=== PATIENT | male | born 1960 | race Caucasian/White ===

== ENCOUNTER → 2016-07-31 | Outpatient (CLI) | payer MEDICARE ==
[~2016-07-31] MED LIST: ALPRAZOLAM0.5 M2 PO; CHRONULAC10 GM/15 M PO; Carafate1 GM/10 ML PO; DILANTIN100 MG PO; FLUVOXAMINE50 MG PO; Flovent 220 M220 MCG INH; KEFLEX500 MG PO; KRISTALOSE10 GM/PACK PO; LISINOPRIL5 MG PO; MULTIPLE VITAMI1 CAP PO; NEXIUM40 MG PO; PROAIR HFA0.09 MG/AC IH; STOOL SOFTENER100 M1 PO; SYMBICORT1 AE1 IH; TORADOL10 MG PO; VITAMIN D32000 I1 PO; ZITHROMAX250 MG PO
[2016-07-31 08:18] LABS: BASO % 0.5 % (0.0-1.0); EOS # 0.1 10*3/uL (0.0-0.4); EOS % 1.1 % (1.0-4.0); HEMATOCRIT 45.4 % (42.0-52.0); HEMOGLOBIN 15.2 g/dl (14.0-18.0); LYMPH # 1.5 10*3/uL (1.3-4.4); LYMPH % 24.5 % (27.0-41.0); MEAN CORPUSCULAR HGB 32.1 pg (27.0-31.0); MEAN CORPUSCULAR HGB CONC 33.5 g/dl (33.0-37.0); MEAN PLATELET VOLUME 11.6 fl (9.6-12.3); MONO # 0.5 10*3/uL (0.1-1.0); MONO % 7.8 % (3.0-9.0); NEUT # 4.1 10*3/uL (2.3-7.9); NEUT % 65.8 % (47.0-73.0); PLATELET COUNT AUTOMATED 150 10*3/uL (130-400); RED BLOOD COUNT 4.73 10*6/uL (4.50-5.90); RED CELL DISTRI WIDTH 12.2 % (0-14.5); WHITE BLOOD COUNT 6.3 10*3/uL (4.8-10.8)
[2016-07-31 08:50] LABS: ALBUMIN 3.7 gm/dl (3.1-4.5); SGOT/AST 17 IU/L (3-35); SGPT/ALT 31 U/L (12-78)
[2016-07-31 08:52] LABS: ALKALINE PHOSPHATASE 66 U/L (45-117); BILIRUBIN, DIRECT < 0.1 mg/dL (0.0-0.2); BILIRUBIN, TOTAL 0.3 mg/dl (0.2-1.0); TOTAL PROTEIN 7.2 gm/dL (6.4-8.2)
== END | disposition home or self-care (01) ==
LOC: LAB 07:04
PROVIDERS: Nurse Practitioner Family
DX: R56.9 Unspecified convulsions (principal)

== ENCOUNTER → 2016-08-03 | Outpatient (CLI) | payer MEDICARE ==
[2016-08-03 09:27] LABS: BASO % 0.5 % (0.0-1.0); EOS # 0.1 10*3/uL (0.0-0.4); EOS % 1.3 % (1.0-4.0); HEMATOCRIT 42.9 % (42.0-52.0); HEMOGLOBIN 14.7 g/dl (14.0-18.0); LYMPH # 1.3 10*3/uL (1.3-4.4); LYMPH % 22.9 % (27.0-41.0); MEAN CELL VOLUME 95.1 fl (80.0-94.0); MEAN CORPUSCULAR HGB 32.6 pg (27.0-31.0); MEAN CORPUSCULAR HGB CONC 34.3 g/dl (33.0-37.0); MONO # 0.6 10*3/uL (0.1-1.0); NEUT # 3.6 10*3/uL (2.3-7.9); NEUT % 64.9 % (47.0-73.0); PLATELET COUNT AUTOMATED 141 10*3/uL (130-400); RED BLOOD COUNT 4.51 10*6/uL (4.50-5.90); RED CELL DISTRI WIDTH 12.3 % (0-14.5); WHITE BLOOD COUNT 5.5 10*3/uL (4.8-10.8)
[2016-08-03 09:43] LABS: ALBUMIN 3.6 gm/dl (3.1-4.5); ALKALINE PHOSPHATASE 73 U/L (45-117); BILIRUBIN, TOTAL 0.3 mg/dl (0.2-1.0); BUN 14 mg/dl (7-24); CARBON DIOXIDE 30 mmol/L (21-32); CHLORIDE 108 mmol/L (98-107); CHOLESTEROL 144 mg/dL (<200); EST GLOM FILT AFRICAN AMERICAN > 60 ml/min; GLUCOSE 93 mg/dL (65-99); HDL CHOLESTEROL 40 mg/dl (40-60); LDL CHOLESTEROL 81 mg/dL (9-159); POTASSIUM 4.5 mmol/L (3.5-5.1); SGOT/AST 18 IU/L (3-35); SGPT/ALT 38 U/L (12-78); SODIUM 142 mmol/L (136-145); TRIGLYCERIDES 114 mg/dl (<150); VLDL CHOLESTEROL 23 mg/dL (6-40)
[2016-08-03 10:31] LABS: VITAMIN D, 25-HYDROXY 34.8 ng/mL (30-100)
== END ==
LOC: LAB 09:01
PROVIDERS: Internal Medicine
DX: S92.911A Unspecified fracture of right toe(s), initial encounter for closed fracture (principal); M25.474 Effusion, right foot; K59.09 Other constipation; E55.9 Vitamin D deficiency, unspecified; E78.00 Pure hypercholesterolemia, unspecified; X58.XXXA Exposure to other specified factors, initial encounter; Y93.89 Activity, other specified; Y92.89 Other specified places as the place of occurrence of the external cause; Y99.8 Other external cause status

== ENCOUNTER 2017-01-04 16:55 | Emergency (ER) | payer MEDICARE ==
[~2017-01-04] VITALS: Ht 177.8 cm; Wt 99.8 kg
[2017-01-04 17:51] VITALS: BP 144/72
[2017-01-04 17:51] LABS: BASO % 0.3 % (0.0-1.0); EOS # 0.1 10*3/uL (0.0-0.4); EOS % 0.5 % (1.0-4.0); HEMATOCRIT 43.8 % (42.0-52.0); HEMOGLOBIN 15.1 g/dl (14.0-18.0); LYMPH # 1.6 10*3/uL (1.3-4.4); LYMPH % 16.5 % (27.0-41.0); MEAN CELL VOLUME 93.8 fl (80.0-94.0); MEAN CORPUSCULAR HGB 32.3 pg (27.0-31.0); MEAN CORPUSCULAR HGB CONC 34.5 g/dl (33.0-37.0); MEAN PLATELET VOLUME 11.5 fl (9.6-12.3); MONO # 1.2 10*3/uL (0.1-1.0); MONO % 12.1 % (3.0-9.0); NEUT # 6.7 10*3/uL (2.3-7.9); NEUT % 70.3 % (47.0-73.0); PLATELET COUNT AUTOMATED 156 10*3/uL (130-400); RED BLOOD COUNT 4.67 10*6/uL (4.50-5.90); RED CELL DISTRI WIDTH 12.6 % (0-14.5); WHITE BLOOD COUNT 9.5 10*3/uL (4.8-10.8)
[2017-01-04 18:01] LABS: ACT PARTIAL THROMBO TIME 23.9 SECONDS (20.8-31.5)
== END 2017-01-04 23:43 | disposition short-term general hospital (02) ==
LOC: ED 16:55
PROVIDERS: Emergency Medicine
DX: M54.42 Lumbago with sciatica, left side (principal); M54.41 Lumbago with sciatica, right side; M48.061 Spinal stenosis, lumbar region without neurogenic claudication; G40.909 Epilepsy, unspecified, not intractable, without status epilepticus; Z88.1 Allergy status to other antibiotic agents; Z88.0 Allergy status to penicillin; G89.29 Other chronic pain

== ENCOUNTER → 2017-01-04 | Outpatient (CLI) | payer MEDICARE | END | disposition home or self-care (01) | LOC: RAD 10:02 | DX: M12.88 Other specific arthropathies, not elsewhere classified, other specified site (principal); M54.5 Low back pain; R20.0 Anesthesia of skin ==

== ENCOUNTER → 2017-06-07 | Outpatient (CLI) | payer MEDICARE ==
[2017-06-07 07:53] LABS: HEMATOCRIT 46.4 % (42.0-52.0); MEAN CELL VOLUME 95.7 fl (80.0-94.0); MEAN CORPUSCULAR HGB CONC 34.5 g/dl (33.0-37.0); MEAN PLATELET VOLUME 10.2 fl (9.6-12.3); RED BLOOD COUNT 4.85 10*6/uL (4.50-5.90); RED CELL DISTRI WIDTH 11.9 % (0-14.5)
[2017-06-07 08:08] LABS: ALKALINE PHOSPHATASE 73 U/L (45-117); BUN 19 mg/dl (7-24); CHLORIDE 102 mmol/L (98-107); CHOLESTEROL 174 mg/dL (<200); CREATININE 0.85 mg/dL (0.70-1.30); HDL CHOLESTEROL 39 mg/dl (40-60); LDL CHOLESTEROL 111 mg/dL (9-159); POTASSIUM 4.4 mmol/L (3.5-5.1); SGOT/AST 24 IU/L (3-35); SGPT/ALT 44 U/L (12-78); SODIUM 140 mmol/L (136-145); TOTAL PROTEIN 7.9 gm/dL (6.4-8.2); TRIGLYCERIDES 121 mg/dl (<150); VLDL CHOLESTEROL 24 mg/dL (6-40)
== END | disposition home or self-care (01) ==
LOC: LAB 07:15
DX: Z12.5 Encounter for screening for malignant neoplasm of prostate (principal); I10 Essential (primary) hypertension; E55.9 Vitamin D deficiency, unspecified; E78.00 Pure hypercholesterolemia, unspecified; K21.9 Gastro-esophageal reflux disease without esophagitis

== ENCOUNTER → 2017-07-03 | Outpatient (CLI) | payer MEDICARE ==
[2017-07-03 08:38] LABS: ALBUMIN 3.8 gm/dl (3.1-4.5); BUN 19 mg/dl (7-24); CHLORIDE 101 mmol/L (98-107); CREATININE 0.75 mg/dL (0.70-1.30); POTASSIUM 4.4 mmol/L (3.5-5.1); SGOT/AST 30 IU/L (3-35); SGPT/ALT 50 U/L (12-78); SODIUM 140 mmol/L (136-145); TOTAL PROTEIN 7.5 gm/dL (6.4-8.2)
[2017-07-03 08:39] LABS: ALKALINE PHOSPHATASE 61 U/L (45-117)
== END | disposition home or self-care (01) ==
LOC: LAB 07:25
PROVIDERS: Internal Medicine Pulmonary Disease
DX: D86.9 Sarcoidosis, unspecified (principal)

== ENCOUNTER → 2017-07-06 | Outpatient (CLI) | payer MEDICARE | END | disposition home or self-care (01) | LOC: CT 09:15 | DX: J98.11 Atelectasis (principal); D86.9 Sarcoidosis, unspecified ==

== ENCOUNTER → 2017-07-10 | Outpatient (CLI) | payer MEDICARE ==
--- NOTE | ~2017-07-10 | PF ---
[place], [place] PULMONARY FUNCTION TEST [id number] UN[facility] #: [id number] ROOM: DOCTOR: ELGIN VAZUQEZ,SHA BIRTHDATE: [birth year] DOS: 07/10/2017 REQUESTED BY: Liza Hyatt. A 72 inches tall, 200 pounds, 58-year-old male, BMI of 27 with a history of sarcoidosis, never smoked. No wheezing, coughing or shortness of breath. He worked in the [employer] industry for 21 years. He had a good effort during the test. Spirometry is suggestive of restrictive lung disease, no COPD, but does suggest there is some reactive airway disease with 13% increase, improvement postbronchodilator therapy in FEF 25%-75%. Lung volumes were not done except for slow vital capacity 60%, inspiratory capacity 61%, ERV 66%. On a spirometry, FEV1 2.71 liters, 69% predicted; FVC 3.03 liters, 59% predicted with no significant response to bronchodilator therapy. FEV1 or FVC was 90%. Diffusion capacity 81%, corrected alveolar volume 123% predicted, lung volume 66% predicted. IMPRESSION: No chronic obstructive pulmonary disease, only restriction and possible mild reactive airway disease and decrease in alveolar volume suggestive of possible atelectasis or loss of height. Responds to bronchodilator therapy, cannot be confirmed on this test. SHA EISENBERG MD CM:PFREPORT:PULMONARY FUNCTION TEST [id number] SHA EISENBERG MD
== END | disposition home or self-care (01) ==
LOC: CP 11:49
DX: D86.9 Sarcoidosis, unspecified (principal)

== ENCOUNTER → 2017-08-01 | Outpatient (CLI) | payer MEDICARE ==
[2017-08-01 08:27] LABS: ALBUMIN 3.7 gm/dl (3.1-4.5); ALKALINE PHOSPHATASE 68 U/L (45-117); BILIRUBIN, DIRECT < 0.1 mg/dL (0.0-0.2); SGOT/AST 23 IU/L (3-35); SGPT/ALT 38 U/L (12-78)
[2017-08-01 08:39] LABS: TOTAL PROTEIN 7.1 gm/dL (6.4-8.2)
== END | disposition home or self-care (01) ==
LOC: LAB 06:57
PROVIDERS: Nurse Practitioner Family
DX: R56.9 Unspecified convulsions (principal)

== ENCOUNTER → 2017-09-04 | Outpatient (CLI) | payer MEDICARE | END | disposition home or self-care (01) | LOC: LAB 07:54 | DX: R56.9 Unspecified convulsions (principal) ==

== ENCOUNTER 2018-03-24 02:10 | Inpatient (IN) | payer MEDICARE ==
[~2018-03-24] VITALS: Ht 182.9 cm; Wt 100.0 kg
[2018-03-24] VITALS (7 sets, daily range): BP systolic 98–139; BP diastolic 43–79
--- NOTE | ~2018-03-24 | EKG ---
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
[~2018-03-24 02:10] MED LIST changes: +FLOVENT DISKUS50 MCG INH; -Flovent 220 M220 MCG INH; +KRISTALOSE10 GM PO; -KRISTALOSE10 GM/PACK PO; -PROAIR HFA0.09 MG/AC IH; +PROAIR HFA8.5 GM INH; -STOOL SOFTENER100 M1 PO; +STOOL SOFTENER100 M3 PO
[2018-03-24 02:44] LABS: HEMATOCRIT 50.8 % (42.0-52.0); HEMOGLOBIN 17.3 g/dl (14.0-18.0); MEAN CELL VOLUME 95.3 fl (80.0-94.0); MEAN CORPUSCULAR HGB 32.5 pg (27.0-31.0); MEAN CORPUSCULAR HGB CONC 34.1 g/dl (33.0-37.0); MEAN PLATELET VOLUME 11.5 fl (9.6-12.3); PLATELET COUNT AUTOMATED 151 10*3/uL (130-400); RED BLOOD COUNT 5.33 10*6/uL (4.50-5.90); RED CELL DISTRI WIDTH 12.8 % (0-14.5)
--- NOTE | 2018-03-24 02:56 | NUR ---
CRITICAL LAB LA 4.2, NOTIFIED
[2018-03-24 02:59] LABS: ALBUMIN 4.2 gm/dl (3.1-4.5); ALKALINE PHOSPHATASE 77 U/L (45-117); BUN 30 mg/dl (7-24); CHLORIDE 108 mmol/L (98-107); CREATININE 1.31 mg/dL (0.70-1.30); LIPASE 69 U/L (73-393); SGOT/AST 26 IU/L (3-35); SGPT/ALT 38 U/L (12-78); SODIUM 142 mmol/L (136-145); TOTAL PROTEIN 8.4 gm/dL (6.4-8.2)
[2018-03-24 03:00] LABS: POTASSIUM 4.6 mmol/L (3.5-5.1)
[2018-03-24 03:03] LABS: TOTAL CELLS COUNTED 100 #CELLS
[2018-03-24 03:04] LABS: PLATELET SUFFICIENCY NORMAL (NORMAL)
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
[2018-03-24] MEDS ORDERED: PHENYTOIN100 MG PO (04:05)
[2018-03-24 04:40] LABS: HEMATOCRIT 48.3 % (42.0-52.0); HEMOGLOBIN 16.3 g/dl (14.0-18.0); MEAN CELL VOLUME 97.2 fl (80.0-94.0); MEAN CORPUSCULAR HGB 32.8 pg (27.0-31.0); MEAN CORPUSCULAR HGB CONC 33.7 g/dl (33.0-37.0); MEAN PLATELET VOLUME 11.3 fl (9.6-12.3); PLATELET COUNT AUTOMATED 127 10*3/uL (130-400); RED BLOOD COUNT 4.97 10*6/uL (4.50-5.90); WHITE BLOOD COUNT 9.5 10*3/uL (4.8-10.8)
--- NOTE | 2018-03-24 04:50 | NUR ---
LAB CALLED [facility]IT[facility] 2.[address] RAMIREZ AND NOTIFIED HIM OF RESULT AND NO NEW ORDERS RECEIVED.
[2018-03-24 04:53] LABS: BUN 29 mg/dl (7-24); CHLORIDE 109 mmol/L (98-107); POTASSIUM 4.5 mmol/L (3.5-5.1); SODIUM 142 mmol/L (136-145)
[2018-03-24 04:58] LABS: PHOSPHOROUS 2.3 mg/dL (2.5-4.9)
[2018-03-24 05:06] LABS: PHENYTOIN (DILANTIN) 11.5 ug/ml (10-20)
[2018-03-24 05:24] LABS: PLATELET SUFFICIENCY LOW (NORMAL); TOTAL CELLS COUNTED 100 #CELLS
--- NOTE | 2018-03-24 07:30 | NUR ---
LAB CALLED CRITICAL [facility] 2.2 CALLED AND SPOKE WITH DR. NEIL ABOUT THIS RESULT AND NO NEW ORDERS AT THIS TIME.
--- NOTE | 2018-03-24 09:20 | NUR ---
PT RESTING IN BED. NO DISTRESS NOTED. WILL MONITOR FAMILY AT BEDSIDE
--- NOTE | 2018-03-24 16:12 | NUR ---
PT RESTING IN BED, EYES CLOSED. NO DISTRESS NOTED. WILL MONITOR
--- NOTE | 2018-03-24 17:00 | NUR ---
PT MEDICATED WITH TYLENOL FOR TEMP 101 WILL MONITOR
--- NOTE | 2018-03-24 19:05 | NUR ---
TEMP NOW 98.2. TYLENOL EFFECTIVE. WILL MONITOR
--- NOTE | 2018-03-24 19:58 | NUR ---
PT AWAKE IN BED DURING BEDSIDE SHIFT REPORT. C/O ABD CRAMPING. NO FURTHER N/V. DIARRHEA CONTINUES. STOOL SAMPLE OBTAINED AND SENT TO LAB AT THIS TIME. CALL LIGHT IN REACH.
[2018-03-25] VITALS: BP 100/49
--- NOTE | 2018-03-25 00:53 | NUR ---
PT MEDICATED W/ZOFRAN FOR C/O ABD CRAMPING/NAUSEA. KUB RESULTS REVIEWED W/PT. PT UNABLE TO UNDERSTAND ANY MEDICAL TERMINOLOGY. EXPLAINED TO PT IN VERY LAYMEN TERMS. PT ACKNOWLEDGES. CALL LIGHT IN REACH.
--- NOTE | 2018-03-25 03:27 | NUR ---
PT MEDICATED W/TYLENOL FOR C/O ABD CRAMPING. WILL MONITOR FOR EFFECTIVENESS.
[2018-03-25 06:29] LABS: BASO % 0.6 % (0.0-1.0); EOS % 0.6 % (1.0-4.0); LYMPH # 0.7 10*3/uL (1.3-4.4); LYMPH % 12.6 % (27.0-41.0); MEAN CELL VOLUME 97.3 fl (80.0-94.0); MEAN CORPUSCULAR HGB 32.1 pg (27.0-31.0); MEAN PLATELET VOLUME 10.9 fl (9.6-12.3); MONO # 0.6 10*3/uL (0.1-1.0); MONO % 11.3 % (3.0-9.0); NEUT # 3.9 10*3/uL (2.3-7.9); NEUT % 74.5 % (47.0-73.0); RED BLOOD COUNT 4.05 10*6/uL (4.50-5.90); RED CELL DISTRI WIDTH 12.7 % (0-14.5); WHITE BLOOD COUNT 5.2 10*3/uL (4.8-10.8)
[2018-03-25 06:30] LABS: HEMATOCRIT 39.4 % (42.0-52.0); PLATELET COUNT AUTOMATED 88 10*3/uL (130-400)
[2018-03-25 06:41] LABS: CHLORIDE 111 mmol/L (98-107); CREATININE 0.69 mg/dL (0.70-1.30)
[2018-03-25 07:06] LABS: SODIUM 140 mmol/L (136-145)
[2018-03-25 07:09] LABS: BUN 13 mg/dl (7-24); POTASSIUM 3.5 mmol/L (3.5-5.1)
--- NOTE | 2018-03-25 07:48 | NUR ---
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 DELTA JOSEPH SPNRCC
[2018-03-25 08:00] VITALS: BP 110/60
--- NOTE | 2018-03-25 09:00 | NUR ---
Classifier in to talk to patient. Patient states lives at home alone with his family checking in on him. There are 14 steps in the home. Physician: Dr. Gio Diallo Pharmacy: [facility] Home health services: none Patient's level of ADLs: INDEPENDENT Patient has working utilities: yes DME: none Follow-up physician's appointment after d/c: he prefers to make his own follow up appt after discharge Does patient want to access PORTAL?: no Discharge plan discussed with patient. He lives at home alone with his family checking in on him. He is independent in his ADLs and ambulation. Discussed home health care services and he denies any home needs at this time. When medically stable he will be discharged to home. BRE BLUNT
--- NOTE | 2018-03-25 09:25 | NUR ---
KIMBERLY LLOYD 2 TABLES GIVEN D/T PT STATING "MY BELLY HURTS 6 OUT OF 0-10" WILL CONTINUE TO MONITOR FOR EFFECTIVENESS. DELTA JOSEPH SPNRCC
--- NOTE | 2018-03-25 09:55 | NUR ---
FOLLOW UP ON PRN TYLENOL GIVEN, PT STATED "PAIN IS BETTER, 3 OUT OF 0-10" MED IS EFFECTIVE. WILL CONTINUE TO ASSESS AND MONITOR. DELTA JOSEPH SPPETRACC
--- NOTE | 2018-03-25 13:11 | NUR ---
PT STATED "I HAD A BATH EARILY THIS MORNING SO I DON'T WANT ANOTHER ONE THIS MORNING". DELTA JOSEPH SPNRCC
[2018-03-25] MEDS ORDERED: FLAGYL500 MG PO (15:14)
--- NOTE | 2018-03-25 15:33 | NUR ---
Discharge instructions reviewed with patient/family. Patient receptive and verbalizes understanding. Follow-up care arranged. Written instructions given to patient/family. KSENIA GARCIA
== END 2018-03-25 15:33 | disposition home or self-care (01) | DRG 871 ==
LOC: ED 02:10 → EDHOLD 03:15 → 5E 03:15
PROVIDERS: Emergency Medicine; Internal Medicine; Student in an Organized Health Care Education/Training Program; ADMIT Internal Medicine
DX: A41.9 Sepsis, unspecified organism (principal); A08.4 Viral intestinal infection, unspecified; N17.0 Acute kidney failure with tubular necrosis; E87.2 Acidosis; G40.919 Epilepsy, unspecified, intractable, without status epilepticus; E86.0 Dehydration; D75.89 Other specified diseases of blood and blood-forming organs; R73.9 Hyperglycemia, unspecified; E87.8 Other disorders of electrolyte and fluid balance, not elsewhere classified; D86.9 Sarcoidosis, unspecified; K21.9 Gastro-esophageal reflux disease without esophagitis; I10 Essential (primary) hypertension; M48.061 Spinal stenosis, lumbar region without neurogenic claudication; E78.5 Hyperlipidemia, unspecified; E66.3 Overweight; R65.20 Severe sepsis without septic shock; G89.29 Other chronic pain; M54.9 Dorsalgia, unspecified; K59.09 Other constipation; Z88.0 Allergy status to penicillin; Z88.1 Allergy status to other antibiotic agents; Z83.2 Family history of diseases of the blood and blood-forming organs and certain disorders involving the immune mechanism; Z79.899 Other long term (current) drug therapy; Z68.29 Body mass index [BMI] 29.0-29.9, adult

== ENCOUNTER → 2018-05-14 | Outpatient (CLI) | payer MEDICARE ==
[~2018-05-14] MED LIST changes: +FLAGYL500 MG PO; +PHENYTOIN100 MG PO
[2018-05-14 08:10] LABS: BASO # 0.1 10*3/uL (0.0-0.1); BASO % 0.4 % (0.0-1.0); EOS # 0.1 10*3/uL (0.0-0.4); EOS % 0.6 % (1.0-4.0); HEMATOCRIT 48.2 % (42.0-52.0); HEMOGLOBIN 15.9 g/dl (14.0-18.0); LYMPH # 2.7 10*3/uL (1.3-4.4); LYMPH % 22.9 % (27.0-41.0); MEAN CELL VOLUME 98.6 fl (80.0-94.0); MEAN CORPUSCULAR HGB 32.5 pg (27.0-31.0); MEAN PLATELET VOLUME 11.2 fl (9.6-12.3); MONO % 8.3 % (3.0-9.0); NEUT # 7.8 10*3/uL (2.3-7.9); NEUT % 66.9 % (47.0-73.0); PLATELET COUNT AUTOMATED 156 10*3/uL (130-400); RED BLOOD COUNT 4.89 10*6/uL (4.50-5.90); RED CELL DISTRI WIDTH 12.6 % (0-14.5); WHITE BLOOD COUNT 11.6 10*3/uL (4.8-10.8)
[2018-05-14 08:40] LABS: ALBUMIN 3.8 gm/dl (3.1-4.5); ALKALINE PHOSPHATASE 77 U/L (45-117); BUN 26 mg/dl (7-24); CHLORIDE 106 mmol/L (98-107); CREATININE 0.84 mg/dL (0.70-1.30); POTASSIUM 3.8 mmol/L (3.5-5.1); SGOT/AST 16 IU/L (3-35); SGPT/ALT 43 U/L (12-78); SODIUM 141 mmol/L (136-145); TOTAL PROTEIN 7.8 gm/dL (6.4-8.2)
== END | disposition home or self-care (01) ==
LOC: LAB 07:26
PROVIDERS: Internal Medicine Pulmonary Disease
DX: D86.9 Sarcoidosis, unspecified (principal)

== ENCOUNTER 2019-04-09 13:30 | Inpatient (IN) | payer MEDICARE ==
[~2019-04-09] VITALS: Ht 182.8 cm; Wt 103.0 kg
[2019-04-09] MEDS ORDERED: BUSPAR5 MG PO (13:49)
[2019-04-09] MEDS ORDERED: FLOVENT HFA12 G1 INH (13:50)
--- NOTE | 2019-04-09 14:02 | NUR ---
RODRIGUE SAMUELS Nathan a 59 year old M admitted via wheel chair from the EMERGENCY ROOM as a voluntary admission. Arrived on unit at 1402. ALLERGIES: AZITHROMYCIN, PENICILLIN. Vital signs are: 97.1-84-20 129/60. The client signed the following forms with stated understanding: Authorization For The Release of Medical Information, Clothing List, Consent to Voluntary Admission and Hospitalization, Consent and Release Forms/Receipt of Rights, Acknowledgement of Advance Directive Information, Behavioral Health Consent Form, and Informed Consent of Medications. Admitted under the services of Dr. LATRICIA VAZQUEZROBERTO. A search was conducted and hazardous articles were removed. Client was oriented to the unit. JEET SILVER
[2019-04-09 14:03] VITALS: BP 129/60
[2019-04-09 14:24] VITALS: BP 129/60
--- NOTE | 2019-04-09 14:46 | NUR ---
PT ARRIVED ON THE UNIT AT 1402. PT AMBULATORY THROUGHOUT UNIT, GAIT STEADY. PT PLEASANT AND COOPERATIVE WITH STAFF DURING ADMISSION ASSESSMENT. PT ALERT TO PERSON,PLACE, TIME AND SITUATION. PT DENIES ANY SUICIDAL THOUGHTS AT THIS TIME, STATES "I WAS FEELING LIKE THAT THIS MORNING, SO I CAME TO THE HOSPITAL." PT DENIES ANY HALLUCINATION OR DELUSIONS NOTED AT THIS TIME.
--- NOTE | 2019-04-09 14:52 | NUR ---
SPOKE WITH DR PACHECO AT [phone] RE: PT CONSULT FOR MEDICAL MANAGEMENT NEEDED PER DR BARRERA CONSULT UNDER DR TREVINO. NO FURTHER ORDERS AT THIS TIME.
--- NOTE | 2019-04-09 15:12 | NUR ---
DR SUÁREZ ON UNIT TO ASSESS PT, UPDATE PROVIDED.
[2019-04-09 19:41] VITALS: BP 106/65
--- NOTE | 2019-04-09 20:48 | NUR ---
P--ANXIETY, PREOCCUPATION, I--PROVIDED 1:1 TIME FOR HIM TO VERBALIZE HIS THOUGHTS. REVIEWED MEDICATIONS. DISCUSSED COPING MECHANISMS AND GROUP THERAPY HE WILL ATTEND R-- I FEEL ALITTLE BETTER NOW THAT I AM HERE. I JUST WORRY ABOUT THINGS IN MY PAST. I NEED TO FIX THAT. MEDICATION COMPLIANT P--MONITOR FOR CHANGES IN BEHAVIOR/MOOD. MONITOR Q 15 MINUTES AND PRN FOR SAFETY.
--- NOTE | 2019-04-10 00:43 | NUR ---
24 HR chart check completed.
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
[2019-04-10 06:31] LABS: BASO % 0.3 % (0.0-1.0); EOS # 0.1 10*3/uL (0.0-0.4); EOS % 0.8 % (1.0-4.0); HEMATOCRIT 45.2 % (42.0-52.0); HEMOGLOBIN 15.1 g/dl (14.0-18.0); LYMPH # 1.2 10*3/uL (1.3-4.4); LYMPH % 19.5 % (27.0-41.0); MEAN CELL VOLUME 98.3 fl (80.0-94.0); MEAN CORPUSCULAR HGB 32.8 pg (27.0-31.0); MEAN CORPUSCULAR HGB CONC 33.4 g/dl (33.0-37.0); MEAN PLATELET VOLUME 11.6 fl (9.6-12.3); MONO # 0.7 10*3/uL (0.1-1.0); MONO % 11.8 % (3.0-9.0); NEUT % 67.3 % (47.0-73.0); PLATELET COUNT AUTOMATED 131 10*3/uL (130-400); RED CELL DISTRI WIDTH 12.1 % (0-14.5); WHITE BLOOD COUNT 5.9 10*3/uL (4.8-10.8)
[2019-04-10 07:08] LABS: ALBUMIN 4.2 gm/dl (3.1-4.5); ALKALINE PHOSPHATASE 79 U/L (45-117); BUN 17 mg/dl (7-24); CHLORIDE 105 mmol/L (98-107); CHOLESTEROL 201 mg/dL (<200); CREATININE 0.99 mg/dL (0.70-1.30); HDL CHOLESTEROL 30 mg/dl (40-60); LDL CHOLESTEROL 132 mg/dL (9-159); PHENYTOIN (DILANTIN) 8.9 ug/ml (10-20); SGOT/AST 29 IU/L (3-35); SGPT/ALT 64 U/L (12-78); SODIUM 138 mmol/L (136-145); TOTAL PROTEIN 7.8 gm/dL (6.4-8.2); TRIGLYCERIDES 193 mg/dl (<150); VLDL CHOLESTEROL 39 mg/dL (6-40)
--- NOTE | 2019-04-10 07:45 | NUR ---
PT AWAKE, ALERT AND VERBAL. RESPS EASY AND EVEN ON ROOM AIR. EATING BREAKFAST IN DINING ROOM WITH PEERS. NO DISTRESS NOTED.
--- NOTE | 2019-04-10 08:00 | NUR ---
Treatment plan meeting was held with Dr. Freitas RN, AT and Fabric Worker Fitter in attendance. Plan for discharge next week. Pt. came to [facility] from Home. At this point plan is for Pt. to return home.
[2019-04-10 08:11] VITALS: BP 126/71
--- NOTE | 2019-04-10 08:12 | NUR ---
PT SITTING IN QUIET ROOM ALONE UPON APPROACH FOR AM MED PASS BY THIS RN. PT AWAKE, ALERT, APPEARS SLIGHTLY ANXIOUS. PT PLEASANT. TOOK AM MEDS WITHOUT DIFFICULTY. MED EDUCATION PROVIDED AND RECIEVED WELL BY PT. NO DISTRESS NOTED. PT OFFERS NO COMPLAINTS AT THIS TIME. AMBULATORY WITH STEADY GAIT. MOVES SELF FREQUENTLY.
[2019-04-10 09:14] LABS: VITAMIN D, 25-HYDROXY 44.3 ng/mL (30-100)
--- NOTE | 2019-04-10 09:36 | NUR ---
ON UNIT TO SEE PT AT THIS TIME, UPDATE GIVEN.
[2019-04-10 10:51] LABS: BILIRUBIN NEGATIVE (NEGATIVE); BLOOD NEGATIVE (NEGATIVE); CLARITY SL CLOUDY (CLEAR); COLOR YELLOW (YELLOW); GLUCOSE NEGATIVE (NEGATIVE); KETONE NEGATIVE (NEGATIVE); LEUKO ESTERASE NEGATIVE (NEGATIVE); NITRITE NEGATIVE (NEGATIVE); SPECIFIC GRAVITY 1.025 (1.005-1.030); UROBILINOGEN 0.2 E.U./dl (0.2-1.0)
[2019-04-10 10:52] LABS: MUCOUS 2+
[2019-04-10 10:53] LABS: BACTERIA 1+
--- NOTE | 2019-04-10 11:23 | NUR ---
, AND ON UNIT TO SEE PT AT THIS TIME.
--- NOTE | 2019-04-10 11:33 | NUR ---
Spoke with Patient in [facility] Pt. is Alert and Oriented. States he lives alone in his Mother's house. She several Years ago. Pt. states that he is disabled due to Lung Disease from Working At [employer] and receives diability benefits. Pt. states that he gets his Medication filled at [facility] in [facility] And has no problem Obtaining his medications. Pt. still drives independently and is able to get himself to his appointments. He follows with [facility] with Corie Carl for Psych.
--- NOTE | 2019-04-10 11:42 | NUR ---
CONSULT ORDERED FOR COUNSELING WITH FOR DEPRESSION AND COPING SKILLS PER . DEVOPS ARCHITECT TO NOTIFY 'S OFFICE.
--- NOTE | 2019-04-10 11:42 | NUR ---
AM GROUP PT CHOSE NOT TO ATTEND MORNING GROUP THERAPY STATING, "I HAVE TINNITUS AND I CAN'T STAND ALL OF THE NOISE IN THERE." PT WAS OFFERED WIRELESS HEADPHONES WITH WHITE NOISE BUT DECLINED SAYING, "IT WON'T WORK AND MY ANXIETY MAKES THE NOISE LOUDER"
--- NOTE | 2019-04-10 11:44 | NUR ---
PT UP IN DAY ROOM WAITING FOR LUNCH, INTERACTING APPROPRAITELY WITH MALE PEER.
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
--- NOTE | 2019-04-10 15:37 | NUR ---
PM GROUP PT CHOSE NOT TO ATTEND AFTERNOON GROUP THERAPY. PT REMAINED IN A QUIET ROOM OR IN HIS ROOM
--- NOTE | 2019-04-10 15:58 | NUR ---
P- PT REPORTS DEPRESSED MOOD, PRESENTS WITH FLAT AFFECT. PT ISOLATIVE TO ROOM, GUARDED IN CONVERSATION. MINIMAL PEER INTERACTIONS NOTED. PT STATES HE PREFERS TO BE ALONE AND NOT IN THE TV ROOM D/T EXACERBATION OF HIS CHRONIC TINNITUS CAUSED BY THE TV. I- ORIENTATION, MOOD AND BEHAVIOR ASSESSED. ASSESSED PT FOR SI/HI, INTENT OR PLAN. ASSESSED PT FOR S/S HALLUCINATIONS, PARANOIA AND/OR DELUSIONS. MEDICATIONS ADMINISTERED PER PHYSICIAN'S ORDERS. ASSISTANCE WITH ADL CARE PROVIDED NEEDED. ENCOURAGED PT TO ATTEND AND PARTICIPATE IN AUG[facility] GROUPS AND ACTIVITIES. R- PT IS ALERT AND ORIENTED X4. MEMORY APPEARS TO BE INTACT. RESPS EASY AND EVEN ON ROOM AIR. MOOD DEPRESSED WITH FLAT AFFECT. SPEECH IS SOFT, COHERENT, ABLE TO MAKE NEEDS KNOWN WITHOUT DIFFICULTY. PT ADMITS TO HAVING SUICIDAL IDEATIONS AT HOME PRIOR TO ADMISSION, HOWEVER, PT DENIES ANY FURTHER SI/HI, INTENT OR PLAN SINCE BEING HERE IN THE HOSPTIAL. PT CONTRACTS FOR SAFETY AND AGREES TO COME TO STAFF IF THESE THOUGHTS REOCCUR. PT ISOLATIVE/GUARDED, MINIMAL PEER INTERACTIONS NOTED, PT STATES HE PREFERS TO STAY OUT OF THE TV ROOM AND KEEP TO HIMSELF D/T THE TV OR LOUD NOISES EXACERBATING HIS CHRONIC TINNITUS. PT IS MED COMPLIANT WITHOUT DIFFICULTY, MED EDUCATION PROVIDED. PT DENIES HALLUCINATIONS, NO RESPONSE TO INTERNAL STIMULI. NO PARANOIA OR DELUSIONS NOTED. PT IS MED COMPLIANT WITHOUT DIFFICULTY. AMBULATORY WITH STEADY GAIT, INDEPENDENT WITH ADLS. CONTINENT OF BOWEL AND BLADDER. NO DISTRESS NOTED. P- PLAN TO CONTINUE CURRENT TREATMENT, CONTINUE TO MONITOR MOOD AND BEHAVIORS, PROVIDE APPROPRIATE REORIENTATION, REDIRECTION AND 1:1 A S NEEDED. CONTINUE TO ENCOURAGE MEDICATION COMPLIANCE WELL GROUP ATTENDANCE AND PARTICIPATION.
--- NOTE | 2019-04-10 17:46 | NUR ---
SHIFT CHART CHECK COMPLETED.
[2019-04-10 19:51] VITALS: BP 120/80
--- NOTE | 2019-04-11 01:04 | NUR ---
SPENT ALOT OF THE EARLIER SHIFT WANDERING IN HALLWAY. AVOIDING GROUPS DUE TO INCREASED RINGING IN EARS WITH THE SOUND. CONTRACTS FOR SAFETY. DENIES ANY SUICIDAL IDEATIONS. FELT HE LEARNED ALOT FROM FRANCISCO J TODAY ABOUT COPING.
--- NOTE | 2019-04-11 04:59 | NUR ---
24 HR chart check completed.2
--- NOTE | 2019-04-11 05:40 | NUR ---
BROKEN 5 HOURS SLEEP.
[2019-04-11 07:56] VITALS: BP 116/73
--- NOTE | 2019-04-11 10:22 | NUR ---
DR. TREVINO ON UNIT TO ASSESS PATIENT.
--- NOTE | 2019-04-11 11:38 | NUR ---
AM GROUP/BEADING PT CAME TO MORNING GROUP THERAPY WITH HALF AN HOUR LEFT STATING, "I WILL BE ABLE TO COME ONCE THEY GET ME EARPLUGS, THEN THE TV WON'T BOTHER ME SO BAD" PT PARTICIPATED BY BEADING AND SOCIALIZING WITH PEERS. PT EXPRESSED NO SUICIDAL IDEATIONS WHILE IN GROUP
--- NOTE | 2019-04-11 12:13 | NUR ---
P: ISOLATIVE AND DEPRESSED MOOD I: ONE ON ONE FOR EMOTIONAL SUPPORT AND ENCOURAGED GROUP PARTICIPATION R: EFFECTIVE. PATIENT PARTICIPATED IN MORNING GROUP SESSION. PATIENT IS ALERT TO PERSON, PLACE, TIME AND SITUATION; ABLE TO VOICE NEEDS. MOOD IS DEPRESSED. DENIES ANY HALLUCINATIONS, DELUSIONS, HI/SI OR PAIN. INDEPENDENT WITH ACTIVITIES OF DAILY LIVING, CONTINENT OF BOWEL AND BLADDER. SET UP FOR MEALS, INTAKES ARE GOOD WITH ADEQUATE FLUIDS. INTERACTIVE WITH STAFF AND OTHER PATIENTS. PARTICIPATED IN GROUP SESSION. P: CONTINUE TO MONITOR MOOD, VOICED STATEMENT OF SI; PROVIDE ONE ON ONE FOR EMOTIONAL SUPPORT, CONTRACT FOR SAFETY AND REDIRECTION NEEDED.
--- NOTE | 2019-04-11 15:41 | NUR ---
PM GROUP/MOVIE PT DID NOT ATTEND AFTERNOON GROUP THERAPY.PT STAYED IN HIS ROOM
[2019-04-11 19:04] VITALS: BP 133/78
--- NOTE | 2019-04-11 21:26 | NUR ---
P-DEPRESSED MOOD, ISOLATIVE I-REDIRECTION WITH 1:1 THERAPEUTIC INTERVENTIONS AND PRESENT REALTIY. EDUCATE AND ENCOURAGE MEDICATION COMPLIANCE R-PATIENT MEDICATION COMPLIANT WITH HS MEDICATIONS. PATIENT PROVIDED NOURISHMENT AT HS AND PROVIDED FLUIDS. PATIENT WITH LIMITED INTERACTION WITH PEERS IN DINING AREA. PATIENT ISOLATIVE IN ROOM DURING SHIFT. PATIENT REQUESTING EAR PLUGS WHILE SITTING IN DINING AREA. PATIENT AMBULATING ON UNIT WITH STEADY GAIT AND WITH NO ASSISTIVE DEVICE. PATIENT WITH NO HALLUCINATIONS OR DELUSIONS. PATIENT WITH NO SUICIDAL OR HOMICIDAL IDEATIONS. P-CONTINUE TO ENCOURAGE MEDICATION COMPLAINCE, CONTINUE TO PRESENT REALITY, ENCOURAGE GROUP THERAPY WHILE AWAKE
--- NOTE | 2019-04-12 05:56 | NUR ---
PATIENT SLEPT >8 OF UNINTERRUPTED SLEEP THROUGHOUT SHIFT. Q 15 MINUTE CHECKS MAINTAINED. 24 HR chart check completed.
[2019-04-12 07:34] VITALS: BP 124/73
--- NOTE | 2019-04-12 08:45 | NUR ---
DR TREVINO ON UNIT TO ASSES PT. UPDATE PROVIDED.
--- NOTE | 2019-04-12 09:34 | NUR ---
P: DEPRESSED MOOD I: PROVIDED 1:1 FOR THERAPEUTIC COMMUNICATION. ENCOURAGED MEDICATION COMPLIANCE. ENCOURAGED PT TO ATTEND/PARTICIPATE IN GROUP. ENCOURAGED PT TO INCREASE INTERACTIONS WITH STAFF AND PEERS. MONITORED BEHAVIORS WITH Q15 MINUTE SAFETY CHECKS. PROVIDE MEDICATION EDUCATION. ENCOURAGE PT TO INCREASE TIME OUT OF HIS ROOM. R: PT A&O X4. DENIES SI/HI, SADNESS, AND DEPRESSION. PT STATED HE IS DOING BETTER AND SLEEPING AND EATING OK. MEDICATION COMPLIANT WITHOUT DIFFICULTY. MEDICATION EDUCATION PROVIDED. PT CAME TO THE DINNINGROOM FOR BREAKFAST THEN PACED THE HALLWAYS AND RETURNED BACK TO HIS ROOM. REMAINS ISOLATIVE AND WITHDRAWN. P: CONTINUE TO ENCOURAGE MEDICATION COMPLAINCE, INCREASED TIME OUT OF ROOM, INCREASED INTERACTIONS BETWEEN STAFF AND PEERS. CONTINUE TO MONITOR BEHAVIORS WITH Q15 MINUTE SAFETY CHECKS. CONTINUE TO PROVIDE 1:1 FOR THERAPEUTIC COMMUNICATION. CONTINUE TO EDUCATE ON MEDICATIONS WHEN NEEDED. SEIZURE PRECAUTIONS MAINTAINED. SEE [facility] FLOWSHEET FOR SPECIFIC MONITORING.
--- NOTE | 2019-04-12 11:49 | NUR ---
AM GROUP/EXERCISE/MUSIC/LEISURE PT ATTENDED AND PARTICIPATED IN GROUP. PT PLEASANT AND ON TASK WITH NO SUICIDAL IDEATIONS EXPRESSED. PT PARTICIPARTED IN ALL ACTIVITY AND WILL CONTINUE TO ATTEND AND PARTICIPATE IN FUTRUE GROUP ACTIVITY'S.
--- NOTE | 2019-04-12 15:55 | NUR ---
PM GROUP/MOVIE/LEISURE PT ATTENDED AND PARTICIPATED BY COLORING A PICTURE. PT PLEASANT WITH NO S.I. EXPRESSED. PT WILL CONTINUE TO ATTEND AND PARTICIPATE IN FUTURE GROUP SESSIONS.
[2019-04-12 20:31] VITALS: BP 120/60
--- NOTE | 2019-04-13 03:43 | NUR ---
P-DEPRESSED MOOD, ISOLATIVE I-REDIRECTION WITH 1:1 THERAPEUTIC INTERVENTIONS AND PRESENT REALTIY. EDUCATE AND ENCOURAGE MEDICATION COMPLIANCE R-PATIENT MEDICATION COMPLIANT WITH HS MEDICATIONS. PATIENT PROVIDED NOURISHMENT AT HS AND PROVIDED FLUIDS. PATIENT WITH LIMITED INTERACTION WITH PEERS IN DINING AREA. PATIENT ISOLATIVE IN ROOM DURING SHIFT. PATIENT AMBULATING ON UNIT WITH STEADY GAIT AND WITH NO ASSISTIVE DEVICE. PATIENT WITH NO HALLUCINATIONS OR DELUSIONS. PATIENT WITH NO SUICIDAL OR HOMICIDAL IDEATIONS. P-CONTINUE TO ENCOURAGE MEDICATION COMPLAINCE, CONTINUE TO PRESENT REALITY, ENCOURAGE GROUP THERAPY WHILE AWAKE
--- NOTE | 2019-04-13 05:46 | NUR ---
PATIENT OBSERVED ON Q 15 MIN CHECKS TO HAVE SLEPT APPROX 8 HOURS WITH X1 BRIEF AWAKENING TO USE THE RESTROOM. NO SIGNS OR SYMPTOMS OF DISTRESS NOTED.
[2019-04-13 07:56] VITALS: BP 128/65
--- NOTE | 2019-04-13 10:08 | NUR ---
DR. TREVINO ON UNIT TO ASSESS PATIENT.
--- NOTE | 2019-04-13 12:46 | NUR ---
AM GROUP/EXERCISE/MUSIC/COLOR BY NUMBER PT IN ATTENDNACE AND PARTICIPATED. PT REMAINED PLEASANT AND ON TASK WITH NO S.I. OR ANXIETY EXPRESSED AT THIS TIME. PT WILL CONTINUE TO ATTEND AND PARTICIPATE IN FUTURE GROUP SESSIONS.
--- NOTE | 2019-04-13 15:56 | NUR ---
PATIENT IS ALERT TO PERSON, PLACE, TIME AND SITUATION; ABLE TO VOICE NEEDS. MOOD IS STABLE, PLEASANT DEMEANOR. DENIES ANY HALLUCINATIONS, DELUSIONS, HI/SI OR PAIN. PARTICIPATED IN GROUP SESSION. INTERACTIVE WITH NURSING STAFF. QUIET TO SELF. CURRENTLY IN DINING ROOM WATCHING MOVIE WITH OTHER PATIENTS. MEDICATION COMPLAINT WITH EDUCATION PROVIDE. Q 15 MINUTE SAFETY CHECKS MAINTAINED. INDEPEDENT WITH ACTIVITIES OF DAILY LIVING, CONTINENT OF BOWEL AND BLADDER. SET UP FOR MEAL, INTAKES ARE GOOD WITH ADEQUATE FLUIDS. AMBULATORY WITH STEADY GAIT. CONTINUE TO MONITOR FOR SUICIDAL IDEATIONS AND DEPRESSED MOOD. PROVIDE ONE ON ONE FOR EMOTIONAL SUPPORT, REDIRECT, ENCOURAGE GROUP PARTICIPATION AND CONTRACT FOR SAFETY NEEDED.
[2019-04-13 20:31] VITALS: BP 119/62
--- NOTE | 2019-04-13 23:18 | NUR ---
NO ADVERSE BEHAVIORS NOTED. PATIENT ALERT AND ORIENTED X4. PT CALM, COOPERATIVE, AND INTERACTIVE. PT SAT IN DINING ROOM WATCHING TV WITH PEERS FOR HS SNACK. DURING 1:1 PATIENT STATED HE WAS DOING SO MUCH BETTER AND HOPES TO GET TO GO HOME SOON. PT DENIES SI/HI, HALLUCINATIONS, OR PAIN. NO PARANOIA/DELUSIONS OBSERVED. MEDICATION COMPLIANT WITHOUT DIFFICULTY AFTER REVIEW. PT CURRENTLY LAYING DOWN WITH EYES CLOSED, RESPIRATIONS EASY AND REGULAR, NO SIGNS OR SYMPTOMS OF DISTRESS NOTED. PLAN IS TO CONTINUE TO MONITOR MOODS AND BEHAVIORS. PROVIDE 1:1 WITH THERAPEUTIC INTERVENTIONS. ENCOURAGE MEDICATION COMPLIANCE AND EDUCATE. MAINTAIN Q 15 MIN CHECKS.
--- NOTE | 2019-04-14 06:13 | NUR ---
PATIENT OBSERVED ON Q 15 MIN CHECKS TO HAVE SLEPT APPROX 4 HOURS INTERRUPTED. MULTIPLE AWAKENINGS NOTED DUE TO ROOM MATE. NO SIGNS OR SYMPTOMS OF DISTRESS NOTED.
[2019-04-14 07:52] VITALS: BP 144/78
--- NOTE | 2019-04-14 08:00 | NUR ---
Treatment Plan meeting was held with Dr. Fretias, MUSIC MINISTER, RN, AT, CORPORATION PILOT-[employer] and Automotive Assembler in attendance. Plan for discharge today with return home and Follow up appointments Scheduled.
[2019-04-14] MEDS ORDERED: BRIN20TA PO (09:41)
[2019-04-14] MEDS ORDERED: CLONAZEPAM1 MG PO ×2 (09:41)
[2019-04-14] MEDS ORDERED: RISPERIDONE0.5 MG PO (09:41)
[2019-04-14] MEDS ORDERED: ROZEREM8 MG PO (09:41)
--- NOTE | 2019-04-14 11:05 | NUR ---
DR. PACHECO NOTIFIED OF PATIENT BEING DISCHARGED. TO INFORM DR. TREVINO OF DISCHARGE.
--- NOTE | 2019-04-14 13:10 | NUR ---
DISCHARGE INSTRUCTIONS REVIEWED WITH PATIENT AND ALL PAPERWORK SIGNED. ALL BELONGING GATHERED AND SENT WITH PATIENT. PATIENT ASSISTED INTO WHEELCHAIR. PATIENT ASSISTED OF UNIT WITH STAFF AND OFF UNIT TO PRIVATE VEHICLE.
--- NOTE | 2019-04-14 13:20 | NUR ---
Met with pt briefly this AM prior to his discharge. Pt stated that he is doing much better and feels ready for discharge.
--- NOTE | 2019-04-14 13:22 | NUR ---
Patient discharged today to home. Follow-up was scheduled with Ingrid Carl NP at [facility] and with Dr Diallo, pt's PCP. While at [facility], pt's mood improved. Pt was no longer voicing suicidal ideations by discharge. Pt was social with staff and peers.
--- NOTE | 2019-04-14 14:15 | NUR ---
Discharge Paperwork Faxed to Dr. Diallo and [facility].
== END 2019-04-14 13:10 | disposition home or self-care (01) | DRG 885 ==
LOC: 3N 13:30
PROVIDERS: ADMIT Psychiatry & Neurology Psychiatry
DX: F33.3 Major depressive disorder, recurrent, severe with psychotic symptoms (principal); R45.851 Suicidal ideations; G40.909 Epilepsy, unspecified, not intractable, without status epilepticus; R73.9 Hyperglycemia, unspecified; I10 Essential (primary) hypertension; F41.9 Anxiety disorder, unspecified; D86.9 Sarcoidosis, unspecified; K21.9 Gastro-esophageal reflux disease without esophagitis; E78.5 Hyperlipidemia, unspecified; M48.061 Spinal stenosis, lumbar region without neurogenic claudication; R73.03 Prediabetes; R29.898 Other symptoms and signs involving the musculoskeletal system; Z88.1 Allergy status to other antibiotic agents; Z88.0 Allergy status to penicillin

== ENCOUNTER 2019-04-24 06:55 | Inpatient (IN) | payer MEDICARE ==
[~2019-04-24] VITALS: Ht 182.8 cm; Wt 103.9 kg
[~2019-04-24 06:55] MED LIST changes: +BRIN20TA PO; +BUSPAR5 MG PO; +CLONAZEPAM1 MG PO; +FLOVENT HFA12 G1 INH; +RISPERIDONE0.5 MG PO; +ROZEREM8 MG PO
[2019-04-24 06:59] VITALS: BP 131/65
[2019-04-24 07:31] LABS: BASO % 0.5 % (0.0-1.0); EOS # 0.1 10*3/uL (0.0-0.4); EOS % 0.8 % (1.0-4.0); HEMOGLOBIN 15.5 g/dl (14.0-18.0); LYMPH # 1.1 10*3/uL (1.3-4.4); LYMPH % 19.4 % (27.0-41.0); MEAN CELL VOLUME 98.1 fl (80.0-94.0); MEAN CORPUSCULAR HGB 32.4 pg (27.0-31.0); MEAN PLATELET VOLUME 11.6 fl (9.6-12.3); MONO # 0.7 10*3/uL (0.1-1.0); MONO % 11.5 % (3.0-9.0); NEUT % 67.6 % (47.0-73.0); PLATELET COUNT AUTOMATED 137 10*3/uL (130-400); RED BLOOD COUNT 4.79 10*6/uL (4.50-5.90); RED CELL DISTRI WIDTH 12.1 % (0-14.5); WHITE BLOOD COUNT 5.9 10*3/uL (4.8-10.8)
[2019-04-24 07:50] LABS: ALKALINE PHOSPHATASE 78 U/L (45-117); BUN 19 mg/dl (7-24); CHLORIDE 108 mmol/L (98-107); CREATININE 0.93 mg/dL (0.70-1.30); POTASSIUM 4.3 mmol/L (3.5-5.1); SGOT/AST 34 IU/L (3-35); SGPT/ALT 52 U/L (12-78); SODIUM 136 mmol/L (136-145); TOTAL PROTEIN 7.7 gm/dL (6.4-8.2)
[2019-04-24 07:52] LABS: ACT PARTIAL THROMBO TIME 27.1 SECONDS (20.0-32.1); INTERNATIONAL NORM RATIO 0.9 (2.0-3.5)
[2019-04-24 08:00] LABS: PHENYTOIN (DILANTIN) 6.9 ug/ml (10-20)
[2019-04-24 08:45] VITALS: BP 123/64
[2019-04-24 08:50] VITALS: BP 123/64
[2019-04-24] MEDS ORDERED: BUSPIRONE HCL10 MG PO (09:50)
[2019-04-24] MEDS ORDERED: PROAIR DIGIHAL90 MCG INH (11:05)
[2019-04-24] MEDS ORDERED: EYE OMEGA ADVA1 EACH PO (11:07)
[2019-04-24 12:00] VITALS: BP 108/66; BP 120/68
--- NOTE | 2019-04-24 12:24 | NUR ---
DR. GARRISON CALLED FOR CONSULT, DID NOT ANSWER. KARLA SAUCEDA NOTIFIED
[2019-04-24 16:00] VITALS: BP 128/72
--- NOTE | 2019-04-24 18:42 | NUR ---
PT BEGAN COLO PREP AT 6 PM AND IS NOW PASSING SMALL AMOUNTS OF CLAUDIA BLOOD WITH STOOL.
[2019-04-24 20:00] VITALS: BP 139/66
[2019-04-25] VITALS (9 sets, daily range): BP systolic 118–145; BP diastolic 65–83
--- NOTE | 2019-04-25 06:00 | NUR ---
FLEETS ENEMA EFFECTIVE. RESULTS CLEAR WITH TINY LT YELLOW FLECKS.
[2019-04-25 06:51] LABS: BASO % 0.7 % (0.0-1.0); EOS # 0.1 10*3/uL (0.0-0.4); EOS % 1.3 % (1.0-4.0); HEMATOCRIT 43.7 % (42.0-52.0); HEMOGLOBIN 14.4 g/dl (14.0-18.0); LYMPH % 17.4 % (27.0-41.0); MEAN CELL VOLUME 98.6 fl (80.0-94.0); MEAN CORPUSCULAR HGB 32.5 pg (27.0-31.0); MEAN PLATELET VOLUME 11.9 fl (9.6-12.3); MONO # 0.6 10*3/uL (0.1-1.0); NEUT # 3.9 10*3/uL (2.3-7.9); NEUT % 70.4 % (47.0-73.0); PLATELET COUNT AUTOMATED 125 10*3/uL (130-400); RED BLOOD COUNT 4.43 10*6/uL (4.50-5.90); RED CELL DISTRI WIDTH 12.3 % (0-14.5); WHITE BLOOD COUNT 5.6 10*3/uL (4.8-10.8)
[2019-04-25 07:02] LABS: ACT PARTIAL THROMBO TIME 27.1 SECONDS (20.0-32.1)
[2019-04-25 07:03] LABS: ALBUMIN 3.7 gm/dl (3.1-4.5); ALKALINE PHOSPHATASE 73 U/L (45-117); BUN 10 mg/dl (7-24); CHLORIDE 111 mmol/L (98-107); CHOLESTEROL 191 mg/dL (<200); PHOSPHOROUS 3.3 mg/dL (2.5-4.9); POTASSIUM 3.9 mmol/L (3.5-5.1); SGOT/AST 35 IU/L (3-35); SGPT/ALT 50 U/L (12-78); SODIUM 141 mmol/L (136-145); TRIGLYCERIDES 227 mg/dl (<150); VLDL CHOLESTEROL 45 mg/dL (6-40)
[2019-04-25 07:04] LABS: FREE T4 0.98 ng/dl (0.76-1.46); HDL CHOLESTEROL 28 mg/dl (40-60); LDL CHOLESTEROL 118 mg/dL (9-159)
--- NOTE | 2019-04-25 07:05 | NUR ---
ARRIED ON SHIFT, INTRODUCED TO PATIENT, WHITE BOARD UPDATED, BED IN LOW POSITION, WHEEL LOCKS ON, CALL LIGHT WITHIN REACH, NO NEEDS VOICED AT THIS TIME.
--- NOTE | 2019-04-25 08:22 | NUR ---
Shift chart check completed.
[2019-04-25 08:42] LABS: VITAMIN D, 25-HYDROXY 45.6 ng/mL (30-100)
--- NOTE | 2019-04-25 13:56 | NUR ---
Ui Application Developer in to see patient. She is currently not in her room. Will follow up at a later time.
--- NOTE | 2019-04-25 14:41 | NUR ---
Preschool Associate Teacher in to talk to patient. Patient states lives at home alone with his brother checking in on him. There are 15 steps in the home. Physician: Yvon De Leon Pharmacy: [facility] Home health services: none Patient's level of ADLs: INDEPENDENT Patient has working utilities: yes DME: none Follow-up physician's appointment after d/c: will be made by the hospitalist nurse director upon discharge Does patient want to access PORTAL?: no Discharge plan discussed with patient. He is sitting on the edge of his bed without distress noted. He lives at home alone with his brother checking in on him. He is independent in his ADLs and ambulation. Discussed home health care services and he denies any home needs at this time. When medically stable he will be discharged to home. He states his brother will provide transportation on discharge. BRE BLUNT
--- NOTE | 2019-04-25 20:00 | NUR ---
24 HOUR CHART CHECK COMPLETE
[2019-04-26] VITALS: BP 106/62
--- NOTE | 2019-04-26 07:10 | NUR ---
ARRIVED ON SHIFT, INTRODUCED TO PATIENT, BED IN LOW LOCKED POSITION, WHEEL LOCKS ON, CALL LIGHT WITHIN REACH, NO NEEDS VOICED AT THIS TIME.
--- NOTE | 2019-04-26 07:50 | NUR ---
Shift chart check completed.
[2019-04-26 08:00] VITALS: BP 135/70
[2019-04-26 12:00] VITALS: BP 112/55
--- NOTE | 2019-04-26 15:11 | NUR ---
Discharge instructions reviewed with patient/family. Patient receptive and verbalizes understanding. Follow-up care arranged. Written instructions given to patient/family. GAVE WRITTEN PERSCRIPTION FOR PROTONIX, IV REMOVED, OFFERED AND DECLINED W/C FOR DISCHARGE, GONZALEZ ROMERO BROTHER. GIDEON STOCKTON
== END 2019-04-26 15:11 | disposition home or self-care (01) | DRG 379 ==
LOC: ED 06:55 → 5E 08:14 → EDHOLD 08:14 → 5E 08:54
PROVIDERS: Emergency Medicine; Internal Medicine; ADMIT Internal Medicine
PROC: 0DB68ZX Excision of Stomach, Via Natural or Artificial Opening Endoscopic, Diagnostic (ICD-10-PCS; principal; 2019-04-24)
PROC: 0DBL8ZZ Excision of Transverse Colon, Via Natural or Artificial Opening Endoscopic (ICD-10-PCS; principal; 2019-04-24)
DX: K62.5 Hemorrhage of anus and rectum (principal); E87.8 Other disorders of electrolyte and fluid balance, not elsewhere classified; R73.9 Hyperglycemia, unspecified; F32.9 Major depressive disorder, single episode, unspecified; F41.9 Anxiety disorder, unspecified; K25.9 Gastric ulcer, unspecified as acute or chronic, without hemorrhage or perforation; K29.70 Gastritis, unspecified, without bleeding; E66.9 Obesity, unspecified; K63.5 Polyp of colon; K59.01 Slow transit constipation; D86.9 Sarcoidosis, unspecified; G40.909 Epilepsy, unspecified, not intractable, without status epilepticus; K21.9 Gastro-esophageal reflux disease without esophagitis; I10 Essential (primary) hypertension; E78.5 Hyperlipidemia, unspecified; K57.30 Diverticulosis of large intestine without perforation or abscess without bleeding; R73.03 Prediabetes; Z68.31 Body mass index [BMI] 31.0-31.9, adult; Z88.1 Allergy status to other antibiotic agents; Z88.0 Allergy status to penicillin; Z82.49 Family history of ischemic heart disease and other diseases of the circulatory system; Z79.899 Other long term (current) drug therapy

== ENCOUNTER 2019-06-20 09:11 | Emergency (ER) | payer MEDICARE ==
[~2019-06-20] VITALS: Ht 182.8 cm; Wt 117.9 kg
[~2019-06-20 09:11] MED LIST changes: +BUSPIRONE HCL10 MG PO; +EYE OMEGA ADVA1 EACH PO; +PROAIR DIGIHAL90 MCG INH
[2019-06-20 09:22] VITALS: BP 107/60
[2019-06-20 09:46] LABS: BASO % 0.5 % (0.0-1.0); EOS % 0.2 % (1.0-4.0); LYMPH # 0.8 10*3/uL (1.3-4.4); LYMPH % 12.5 % (27.0-41.0); MEAN CELL VOLUME 97.6 fl (80.0-94.0); MEAN CORPUSCULAR HGB 32.5 pg (27.0-31.0); MEAN CORPUSCULAR HGB CONC 33.3 g/dl (33.0-37.0); MEAN PLATELET VOLUME 10.9 fl (9.6-12.3); MONO # 0.6 10*3/uL (0.1-1.0); MONO % 8.8 % (3.0-9.0); NEUT # 4.9 10*3/uL (2.3-7.9); NEUT % 77.8 % (47.0-73.0); PLATELET COUNT AUTOMATED 127 10*3/uL (130-400); RED BLOOD COUNT 4.92 10*6/uL (4.50-5.90); RED CELL DISTRI WIDTH 11.9 % (0-14.5); WHITE BLOOD COUNT 6.3 10*3/uL (4.8-10.8)
[2019-06-20 09:55] LABS: ACT PARTIAL THROMBO TIME 27.8 SECONDS (20.0-32.1)
[2019-06-20 10:06] LABS: ALBUMIN 3.9 gm/dl (3.1-4.5); ALKALINE PHOSPHATASE 88 U/L (45-117); BUN 12 mg/dl (7-24); CHLORIDE 105 mmol/L (98-107); CREATININE 0.99 mg/dL (0.70-1.30); POTASSIUM 4.1 mmol/L (3.5-5.1); SGOT/AST 31 IU/L (3-35); SGPT/ALT 59 U/L (12-78); SODIUM 139 mmol/L (136-145); TOTAL PROTEIN 7.4 gm/dL (6.4-8.2)
[2019-06-20 10:14] LABS: ACETAMINOPHEN (TYLENOL) < 5.0 ug/ml (10-30); ETHYL ALCOHOL < 3.0 mg/dl (<3)
[2019-06-20 10:15] LABS: BILIRUBIN NEGATIVE (NEGATIVE); BLOOD NEGATIVE (NEGATIVE); CLARITY SL CLOUDY (CLEAR); COLOR YELLOW (YELLOW); GLUCOSE NEGATIVE (NEGATIVE); KETONE NEGATIVE (NEGATIVE)
[2019-06-20 10:16] LABS: LEUKO ESTERASE NEGATIVE (NEGATIVE); NITRITE NEGATIVE (NEGATIVE); UROBILINOGEN 0.2 E.U./dl (0.2-1.0)
[2019-06-20 10:18] LABS: PHENYTOIN (DILANTIN) 11.3 ug/ml (10-20)
[2019-06-20 10:19] LABS: MUCOUS 1+
[2019-06-20 10:21] LABS: URINE AMPHETAMINES < 1000 (1000ng/ml); URINE BARBITURATES < 200 (200ng/ml); URINE BENZODIAZEPINES < 200 (200ng/ml); URINE CANNABINOIDS (THC) < 50 (50ng/ml); URINE COCAINE < 300 (300ng/ml); URINE METHADONE < 300 (300ng/ml); URINE OPIATES < 300 (300ng/ml); URINE PHENCYCLIDINE < 25 (25ng/ml)
[2019-06-20] MEDS ORDERED: RISPERDAL0.5 MG PO (14:29)
[2019-06-20] MEDS ORDERED: RISPERDAL1 M1 PO (14:33)
[2019-06-20] MEDS ORDERED: LACTULOSE10 GM/151 PO (14:34)
[2019-06-20] MEDS ORDERED: DILANTIN100 MG PO ×2 (14:35→14:36)
[2019-06-20] MEDS ORDERED: PROTONIX20 MG PO (14:37)
[2019-06-20] MEDS ORDERED: EYE OMEGA ADVA1 EACH PO (15:07)
[2019-06-20] MEDS ORDERED: MIRALAX17 GM PO (15:09)
[2019-06-20] MEDS ORDERED: ROZEREM8 MG PO (15:10)
== END 2019-06-20 14:17 | disposition home health service (06) ==
LOC: ED 09:11
PROVIDERS: Emergency Medicine
DX: F43.21 Adjustment disorder with depressed mood (principal); J45.909 Unspecified asthma, uncomplicated; K21.9 Gastro-esophageal reflux disease without esophagitis; I10 Essential (primary) hypertension; E78.5 Hyperlipidemia, unspecified; Z88.0 Allergy status to penicillin; Z88.1 Allergy status to other antibiotic agents; Z79.899 Other long term (current) drug therapy

== ENCOUNTER 2019-06-20 13:31 | Inpatient (IN) | payer MEDICARE ==
[~2019-06-20] VITALS: Ht 182.8 cm; Wt 93.4 kg
[2019-06-20] MEDS ORDERED: RISPERDAL0.5 MG PO (14:29)
[2019-06-20] MEDS ORDERED: RISPERDAL1 M1 PO (14:33)
[2019-06-20] MEDS ORDERED: LACTULOSE10 GM/151 PO (14:34)
[2019-06-20] MEDS ORDERED: DILANTIN100 MG PO ×2 (14:35→14:36)
[2019-06-20] MEDS ORDERED: PROTONIX20 MG PO (14:37)
[2019-06-20 14:52] VITALS: BP 102/70
[2019-06-20] MEDS ORDERED: EYE OMEGA ADVA1 EACH PO (15:07)
[2019-06-20] MEDS ORDERED: MIRALAX17 GM PO (15:09)
[2019-06-20] MEDS ORDERED: ROZEREM8 MG PO (15:10)
--- NOTE | 2019-06-20 15:35 | NUR ---
CALL PLACED TO HOSPITALIST CELL NUMBER ONE, SPOKE TO , MADE AWARE OF NEW CONSULT FOR MEDICAL MANAGEMENT FOR NEW ADMISSION. STATES TO ENTER CONSULT UNDER . FARSHAD AGUILERA AWARE OF ADMISSION AND VOLUNTARY STATUS.
[2019-06-20 15:36] VITALS: BP 102/70
--- NOTE | 2019-06-20 15:41 | NUR ---
RODRIGUE SAMUELS Nathan a 59 year old M admitted via wheel chair from the EMERGENCY ROOM as a voluntary admission. Arrived on unit at 1415. ALLERGIES: PCN AND AITHROMYICIN. Vital signs are: [id number] 102/70. The client signed the following forms with stated understanding: Authorization For The Release of Medical Information, Clothing List, Consent to Voluntary Admission and Hospitalization, Consent and Release Forms/Receipt of Rights, Acknowledgement of Advance Directive Information, Behavioral Health Consent Form, and Informed Consent of Medications. Admitted under the services of Dr. LATRICIA VAZQUEZ,[facility]. A search was conducted and hazardous articles were removed. Client was oriented to the unit. FRANK HANKS
--- NOTE | 2019-06-20 16:15 | NUR ---
PT admitted from the ER due to negative statements that he did not feel safe being alone. During admission assessments he stated his plan was to go home and just take some pain pills like [place]. I asked the pt if he had them he shrugged and stated he really didn't know. Pt talked freely during interactions stating that he felt "dirty alot" and has been washing clothes and hands possibly way to much. Pt stated that he is worried he is dirty from things but is unable to state exactly what is the "dirt" or contaminant he is concerned with. Pt hands trembled with fine motor skills like signing name and feet very restless when being held still. Oreineted pt to room and continue to monitor at this time. pt did contract for safety.
--- NOTE | 2019-06-20 18:14 | NUR ---
AND ON UNIT TO SEE PT AT THIS TIME. UPDATE GIVEN.
--- NOTE | 2019-06-20 19:46 | NUR ---
24 HR chart check completed.
[2019-06-20 19:53] VITALS: BP 116/63
--- NOTE | 2019-06-20 22:45 | NUR ---
P-DEPRESSED, ANXIOUS I-PROVIDE 1:1 VERBAL INTERVENTION FOR EMOTIONAL SUPPORT & VENTILATION OF FEELINGS, ADMINISTER MEDS, MONITOR SLEEP R-DEPRESSED MOOD. RESTLESS & ANXIOUS, DENIES SUICIDAL FEELINGS. REMAINS ISOLATIVE TO SELF. LIMITED VERBALLY. DENIES SENSORY DISTURBANCE & NONE IS EVIDENT. NO DELUSIONAL STATEMENTS VOICED BUT PT IS GUARDED & APPEARS SOMEWHAT SUSPECIOUS WITH THIS RN. HAS BEEN AMBULATING AROUND ON THE UNIT. ALERT & ORIENTED X4. REFUSED SNACK BUT DID DRINK FLUIDS. COMPLIANT WITH MEDS. P-CONTINUE TO MONITOR
--- NOTE | 2019-06-21 04:14 | NUR ---
PT HAS SLEPT PAST 2300
[2019-06-21 07:45] VITALS: BP 120/70
--- NOTE | 2019-06-21 12:25 | NUR ---
P- ANXIOUS AND PARANOID/RACING THOUGHTS. ISOLATIVE I- ASSESS MOOD, ORIENTATION, SI/HI WITH INTENT OR PLAN, HALLUCINATIONS, DELUSIONS, OR PAIN. 1:1 THERAPEUTIC INTERVENTION WITH EMOTIONAL SUPPORT AND VENTILATION OF FEELINGS PROVIDED. PROVIDE THOUGHT STOPPING TECHNIQUES, RELAXATION, AND COPING TECHNIQUES. ENCOURAGE LOW STIMULI ENVIRONMENT. PROVIDE MEDICATIONS ON TIME WITH EDUCATION ON EACH. R- ALERT AND ORIENTED X4. MOOD DEPRESSED WITH FLAT AFFECT. DENIES SI/HI INTENT OR PLAN. DENIES HALLUCIANTIONS; NO S/S OF INTERACTING WITH INTERNAL STIMULI. PATIENT STATES THAT HE STILL FEELS ANXIOUS THAT HE IS MAKING EVERYTHING DIRTY. 1:1 THERAPEUTIC INTERACTION, DEEP BREATHING, AND LOW STIMULI ENVIRONMENT EFFECTIVE AT TIMES. MEDICATION COMPLIANT. EATING AND DRINKING ADEQUATELY. GAIT STEADY; MAKES NEEDS KNOWN. PATIENT REMAINS ISOLATIVE TO SELF AND ROOM. P- ASSESS MOOD, ORIENTATION, SI/HI, HALLUCINATIONS, DELUSIONS OR PAIN EVERY SHIFT. ENCOURAGE TO USE THOUGHT STOPPING. 1:1 THERAPEUTIC INTERACTION PROVIDED WHEN NECESSARY. ENCOURAGE TO KEEP USING COPING/RELAXATION TECHNIQUES. PROVIDE MEDICATIONS ON TIME WITH EDUCATION ON EACH. SEIZURE PRECAUTIONS DUE TO HISTORY. Q15 MINUTE CHECKS CONTINUED FOR SAFETY.
--- NOTE | 2019-06-21 12:28 | NUR ---
PSYCHOSOCIAL HX COMPLETED ON 06/20/19.
--- NOTE | 2019-06-21 14:28 | NUR ---
Shift chart check completed.
--- NOTE | 2019-06-21 17:31 | NUR ---
PATIENT STATES THAT HE IS FEELING VERY ANXIOUS, DEPRESSED, AND HAVING REPETITIVE THOUGHTS. PATIENT STATES THAT HE KEEPS THINKING OF WHEN HE WAS DOWN IN THE ER AND HE HAD A RAG THAT HE CLEANED A SPILL OFF OF THE FLOOR AND HE IS UPSET THAT WHEN THE MAN CAME TO TAKE HIS GARBAGE HE DID NOT TELL HIM THAT THE DIRTY RAG WAS IN THERE. PATIENT STATED "HE PRESSED DOWN ON THE GARBAGE WITH HIS GLOVES AND I JUST KEEP BEATING MYSELF UP THAT I DIDN'T TELL HIM. WHAT IF HE GOT IT ALL OVER THE HOSPITAL BY NOW?" PATIENT STATES THAT IT JUST KEEPS REPLAYING IN HIS HEAD. PATIENT IS HAVING HAND TREMORS AND IS RESTLESS. ALL NONPHARMALOGICAL INTERVENTIONS HAVE BEEN INEFFECTIVE, PT STATES THAT IT JUST WONT STOP PLAYING IN HIS HEAD AND MAKING IT WORSE. REQUESTING AND RECEIVED AT THIS TIME PRN PO ATIVAN PER ORDER. WILL CONTINUE TO HAVE PATIENT TRY COPING SKILLS AND REASSESS EFFECTIVENESS OF PRN.
[2019-06-21 20:00] VITALS: BP 110/59
--- NOTE | 2019-06-21 23:59 | NUR ---
P-ISOLATIVE, DEPRESSED MOOD I-REDIRECTION WITH 1:1 THERAPEUTIC INTERVERVENTIONS. EDUCATE AND ENCOURAGE MEDICATION COMPLIANCE R-PATIENT MEDICATION COMPLIANT AT HS. PATIENT PROVIDED FLUIDS AT HS BUT REFUSED NOURISHMENT. PATIENT ISOLATIVE TO ROOM THIS SHIFT. PATIENT WITH MINIMAL CONVERSATION WITH THIS NURSE AND WITH LIMITED EYE CONTACT. PATIENT WITH DEPRESSED MOOD AT THIS TIME AND PATIENT STATING "I JUST WANT TO LAY DOWN". PATIENT WITH NO HALLUCINATIONS OR DELUSIONS. PATIENT WITH NO SUICIDAL OR HOMICIDAL IDEATIONS. P-CONTINUE TO ENCOURAGE MEDICATION COMPLIANCE, CONTINUE TO PRESENT REALITY, ENCOURAGE GROUP THERAPY WHILE AWAKE
--- NOTE | 2019-06-22 00:15 | NUR ---
Pulmicort treatment not given due to workload. Will resume treatments in AM to keep patient on schedule.
--- NOTE | 2019-06-22 05:56 | NUR ---
PATIENT SLEPT 7 HOURS OF INTERRUPTED SLEEP THROUGHOUT SHIFT. Q 15 MINUTE CHECKS MAINTAINED. 24 HR chart check completed.
--- NOTE | 2019-06-22 07:40 | NUR ---
and team on unit to see pt at this time, update given. [facility]- saw pt this am, update given.
[2019-06-22 08:00] VITALS: BP 114/63
--- NOTE | 2019-06-22 08:12 | NUR ---
Patient in dining room with peers. Respirations easy and regular. Vital signs stable. No overt distress. MARCELO DALTON
[2019-06-22 20:00] VITALS: BP 118/58
--- NOTE | 2019-06-22 22:15 | NUR ---
P-ISOLATIVE, DEPRESSED MOOD I-REDIRECTION WITH 1:1 THERAPEUTIC INTERVERVENTIONS. EDUCATE AND ENCOURAGE MEDICATION COMPLIANCE R-PATIENT MEDICATION COMPLIANT AT HS. PATIENT PROVIDED FLUIDS AT HS BUT REFUSED NOURISHMENT. PATIENT ISOLATIVE TO ROOM THIS SHIFT AND WITH LIMITED INTERACTION WITH PEERS IN DINING AREA. PATIENT WITH COMPLAINT OF PRESSURE FROM CONSTIPATION AND REQUESTED MIRALAX AT HS. MIRALAX WITH INEFFECTIVE RESULTS AT THIS TIME. PATIENT GUARDED AND WITH MINIMAL CONVERSATION AND ANSWERING THIS NURSE WITH SHORT SIMPLE REPLIES. PATIENT WITH NO HALLUCINATIONS OR DELUSIONS. PATIENT WITH NO SUICIDAL OR HOMICIDAL IDEATIONS. P-CONTINUE TO ENCOURAGE MEDICATION COMPLIANEC, ENCOURAGE GROUP THERAPY WHILE AWAKE
--- NOTE | 2019-06-23 05:33 | NUR ---
PATIENT SLEPT 7 HOURS OF INTERRUPTED SLEEP THROUGHOUT SHIFT. Q 15 MINUTE CHECKS MAINTAINED. 24 HR chart check completed.
[2019-06-23 07:33] VITALS: BP 106/63
--- NOTE | 2019-06-23 08:38 | NUR ---
Patient in dining area with peers. Respirations easy and regular. Vital signs stable. No overt distress. MARCELO DALTON
--- NOTE | 2019-06-23 10:46 | NUR ---
PT IS PREOCCUPIED WITH CLEAN AND DIRTY, OBSESSING OVER CHANGING OUT ALL THINGS "DIRTY". PT ASSISTED WITH NEW TOWELS, LINENS, CLOTHES, ETC. PT ALSO PRESENTED WITH REALITY. PT UNRECEPTIVE TO REALITY, CONVINCED THAT ALL ITEMS ARE DIRTY AND REQUESTING THAT BED LINENS BE CHANGED WELL CHAIRS IN DINING ROOM WIPED DOWN. PT STATES THAT HE WAS INCONTINENT OF BOWEL AND NOW "EVERYTHING SMELLS LIKE POOP". WILL CONTINUE TO PRESENT REALITY WELL ASSIST PT BY PROVIDING CLEAN ITEMS TO EASE ANXIETY. WILL CONTINUE TO REDIRECT. WILL PROVIDE MEDICATIONS AND ENCOURAGE PARTICIPATION IN GROUP THERAPY. Q 15 MIN MONITORING PER POLICY FOR SAFETY.
--- NOTE | 2019-06-23 12:48 | NUR ---
DR MEJIA ON UNIT TO ASSESS PT, UPDATE PROVIDED.
--- NOTE | 2019-06-23 15:41 | NUR ---
PM GROUP PT ATTENDED AFTERNOON GROUP THERAPY AND PARTICIPATED BY COLORING A BUTTERFLY. PT WAS QUIET AND ON TASK. PT EXPRESSED NO SUICIDAL IDEATIONS WHILE IN GROUP.
[2019-06-23 19:11] VITALS: BP 109/51
--- NOTE | 2019-06-23 23:19 | NUR ---
P-DEPRESSED MOOD, ISOLATIVE I-REDIRECTION WITH 1:1 THERAPEUTIC INTERVENTIONS. EDUCATE AND ENCOURAGE MEDICATION COMPLIANCE R-PATIENT COMPLIANT WITH HS MEDICATIONS. PATIENT PROVIDED NOURISHMENT AND FLUIDS AT HS. PATIENT WITH DEPRESSED MOOD AND ISOLATIVE. PATIENT WITH MINIMAL INTERACTION WITH PEER IN DINING AREA. PATIENT STATING "I DO FEEL MORE DEPRESSED TODAY. I'M GOING TO TALK TO THE DOCTOR TOMORROW ABOUT IT TO SEE WHAT HE THINKS". PATIENT REQUEST MIRALAX AT HS. PATIENT STATED "I MOVED MY BOWEL VERY LITTLE TODAY AND I JUST WOULD FEEL BETTER IF I COULD GO A LITTLE EASIER. P-CONTINUE TO ENCOURAGE MEDICATION COMPLIANCE, ENCOURAGE GROUP THERAPY WHILE AWAKE
--- NOTE | 2019-06-24 05:52 | NUR ---
PATIENT SLEPT 8 HOURS OF INTERRUPTED SLEEP THROUGHOUT SHIFT. Q 15 MINUTE CHECKS MAINTAINED. 24 HR chart check completed.
[2019-06-24 07:45] VITALS: BP 126/56
--- NOTE | 2019-06-24 07:48 | NUR ---
Patient resting quietly with no c/o discomfort. Respirations easy and regular. Vital signs stable. No overt distress. JEET SILVER
--- NOTE | 2019-06-24 09:12 | NUR ---
DR MEJIA ON UNIT TO ASSESS PT, UPDATE PROVIDED. PT COMPLAINED OF FEELING CONSTIPATED, ADVISED DR THAT PT HAD A BM YESTERDAY AND ALSO RECEIVED MIRALAX LAST HS. NO FURTHER ORDERS AT THIS TIME.
--- NOTE | 2019-06-24 09:40 | NUR ---
PTS BROTHER MIRIAM CALLED IN FOR UPDATE ON PT. PERMISSION RECEIVED FROM PT TO PROVIDE INFOMRATION FROM MIRIAM. PER MIRIAM HE IS QUESTIONING IF THE PT IS JUST DEPRESSED AND ANXIOUS OR IF THERE IS AN UNDERLYING CONDITION SUCH AUTISIM OR MR THAT COULD BE CAUSING THE PTS ISSUES. ADVISED THAT I COULD HAVE THE NURSE PRACTITIONER CALL HIM. SPOKE WITH BEATRIZ CARDONA AND ADVSIED THAT PT BROTHER WOULD LIKE TO SPEAK WITH HER, PHONE NUMBER PROVIDED.
--- NOTE | 2019-06-24 11:50 | NUR ---
AM GROUP PT ATTENDED MORNING GROUP THERAPY AND PARTICIPATED BY PUTTING A FEW MODELS TOGETHER WITH PATRICIA GLUE. PT STATED, "I HOPE THAT GLUE DOESN'T BOTHER ME, I'M ALLERGIC TO GLUE." PT LEFT THE DAYROOM FOR A SHORT TIME AND RETURNED STATING, "I AM STARTING TO HAVE BREATHING PROBLEMS FROM THAT GLUE, I FEEL IT IN MY LUNGS." PT NURSE WAS NOTIFIED. PT EXPRESSED NO SUICIDAL IDEATIONS WHILE IN GROUP.
--- NOTE | 2019-06-24 15:37 | NUR ---
PM GROUP PT ATTENDED AFTERNOON GROUP THERAPY FOR ABOUT AN HOUR AND PARTICIPATED BY COLORING. PT LEFT THE DAYROOM ONCE DONE AND DID NOT RETURN. PT EXPRESSED NO SUICIDAL IDEATIONS WHILE IN GROUP.
--- NOTE | 2019-06-24 15:45 | NUR ---
Shift chart check completed.
--- NOTE | 2019-06-24 18:31 | NUR ---
P: DEPRESSED MOOD WITH FLAT AFFECT, PREOCCUPIED WITH BEING SOILED. I: ONE ON ONE, REDIRECTION, ENCOURAGE GROUP ACTIVITY R: EFFECTIVE. ONE ON ONE AND REDIRECTION EFFECTIVE. PATIENT IS ALERT TO PERSON, PLACE, TIME AND SITUATION. ABLE TO VOICE NEED. MOOD IS DEPRESSED WITH FLAT AFFECT. DENIES ANY HALLUCINATIONS, DELUSIONS, HI/SI OR PAIN. MEDICATION COMPLAINT WITH EDUCATION PROVIDED. Q 15 MINUTE SAFETY CHECKS MAINTAINED. INDEPENDENT WITH ACTIVITIES OF DAILY LIVING, CONTINENT OF BOWEL AND BLADDER. SET UP FOR MEALS, INTAKES ARE GOOD WITH ADEQUATE FLUIDS. AMBULATORY WITH STEADY GAIT. P: CONTINUE TO MONITOR FOR SUICIDAL IDEATIONS. PROVIDE ONE ON ONE FOR EMOTIONAL SUPPORT NEEDED.
[2019-06-24 19:03] VITALS: BP 106/61
--- NOTE | 2019-06-24 19:46 | NUR ---
24 HR chart check completed.
--- NOTE | 2019-06-24 22:46 | NUR ---
P-DEPRESSED, ISOLATIVE I-PROVIDE 1:1 VERBAL INTERVENTION FOR EMOTIONAL SUPPORT & VENTILATION OF FEELINGS, ADMINISTER MEDS, MONITOR SLEEP R-DEPRESSED MOOD. KEEPS TO HIMSELF. DID COME TO THE DINING ROOM & SAT QUIETLY WHILE EATING HIS SNACK. DENIES SUICIDAL FEELINGS. LIMITED VERBALLY. DENIES SENSORY DISTURBANCE & NONE IS EVIDENT. DOES FOCUS ON THINGS BEING CLEAN & SANITIZED. ALERT & ORIENTED X4. COMPLIANT WITH MEDS. P-CONTINUE TO MONITOR
--- NOTE | 2019-06-25 05:29 | NUR ---
PT HAS SLEPT PAST 2100 WITH 2 BRIEF AWAKENINGS TO GO TO THE BATHROOM.
--- NOTE | 2019-06-25 07:50 | NUR ---
DR. MEJIA ON UNIT TO ASSESS PATIENT.
[2019-06-25 08:00] VITALS: BP 113/65
--- NOTE | 2019-06-25 08:15 | NUR ---
Treatment Plan meeting was held with Dr. Freitas, DULCE Gill, RN, AT, EXECUTIVE ADVISOR-S and Log Grader. Plan for discharge /Sunday with return home and follow up appointments scheduled.
--- NOTE | 2019-06-25 08:16 | NUR ---
Patient resting quietly with no c/o discomfort. Respirations easy and regular. Vital signs stable. No overt distress. JEET SILVER
--- NOTE | 2019-06-25 11:34 | NUR ---
AM GROUP PT WAS PRESENT AT THE START OF MORNING GROUP THERAPY BUT CHOSE NOT TO PARTICIPATE. PT LEFT THE DAYROOM AND DID NOT RETURN UNTIL LUNCH TIME.
--- NOTE | 2019-06-25 14:38 | NUR ---
P- Depressed mood, flat affect, isolative, appears anxious, preoccupied with cleanliness. I- Orientation, mood and behaviors assessed. Assessed pt for SI/HI, intent or plan. Assessed pt for s/s hallucinations, paranoia and/or delusions. Medications administered as per physician's orders. Assistance with ADL care provided as needed. Encouraged pt to attend and participate in kenny milieu groups and activities. R- Pt is alert and oriented x4. Memory appears to be intact. Resps easy and even on room air. Mood appears depressed and anxious with flat affect. Speech is monotone, coherent, able to make needs known without difficulty. Minimal interactions noted with peers and staff as pt is largely isolative to room despite encouragement to attend groups and activities. Pt denies SI/HI, intent or plan. Pt denies hallucinations, no response to internal stimuli noted. Pt continues to appear to be fixated on cleanliness. Pt asking about how the lunch trays are cleaned before he would get in the shower this afternoon. Redirection provided. Pt did take shower without difficulty. No aggressive behaviors, no distress noted. P- Plan to continue current treatment, continue to monitor mood and behaviors, provide appropriate reorientation, redirection and 1:1 as needed. Continue to encourage medication compliance as well as group attendance and participation.
--- NOTE | 2019-06-25 15:29 | NUR ---
PM GROUP PT WAS PRESENT AT THE START OF AFTERNOON GROUP THERAPY BUT REFUSED ANY ACTIVITY OFFERED. PT LEFT THE DAYROOM AND RETURNED WITH ONLY A FEW MINUTES LEFT. PT ASKED, "DO YOU WIPE OFF THE TABLES AFTER YOU USE GLUE AND STUFF?" I REPLIED, "YES, ESPECIALLY IF A BUNCH GETS ON THE TABLE. WHY?" PT RESPONDED, "BECAUSE I ADDED SOME GLUE TO THE SAILBOAT THAT I MADE YESTERDAY. I PUT A PAPER TOWEL UNDER IT AND THEN MY LUNCH TRAY CAME. NOW I'M WORRIED THAT THE GLUE GOT ON THE BOTTOM OF THE TRAY! IT'S MY SCHIZOPHRENIA THAT CAUSES ME TO THINK THAT WAY."
--- NOTE | 2019-06-25 17:05 | NUR ---
PATIENT COMPLAINING OF BEING CONSTIPATED. PRN MIRALAX 17GM GIVEN PO IN APPLE JUICE.
--- NOTE | 2019-06-25 18:39 | NUR ---
MANUAL BP 82/40, NO COMPLAINTS OF BEING DIZZY. DR. ROJAS NOTIFIED. RECHECK BP PRIOR TO BEDTIME AND NOTIFY.
[2019-06-25 19:03] VITALS: BP 97/54
[2019-06-25 19:52] VITALS: BP 100/64
--- NOTE | 2019-06-25 19:52 | NUR ---
Patient resting quietly with no c/o discomfort. Respirations easy and regular. Vital signs stable. No overt distress. MANUAL BP TO PT'S LEFT ARM 100/64. PT STATES HE FEELS FINE. DR. MONGE MADE AWARE. MARCELO DALTON
--- NOTE | 2019-06-26 06:45 | NUR ---
Patient slept approx. 8.5 hours throughout shift. Q 15 minute safety checks continued and maintained.
--- NOTE | 2019-06-26 07:30 | NUR ---
Patient resting quietly with no c/o discomfort. Respirations easy and regular. Vital signs stable. No overt distress. BARRY PATTERSON
[2019-06-26 07:52] VITALS: BP 91/54
--- NOTE | 2019-06-26 08:15 | NUR ---
Treatment Plan Meeting was held with Dr. Freitas, RN, AT, DRIVER RETRAINING INSTRUCTOR-S and Net Maker. Plan for discharge Sunday/Sunday with return home.
--- NOTE | 2019-06-26 08:53 | NUR ---
PT A& O X4. PT STATES HE IS A LITTLE DEPRESSED. STATES HE IS WORRIED ABOUT RUNNING OUT OF TOILET PAPER. PT DENIES BEING HOPELESS. ORGANIZED AND GOAL DIRECTED. PT STATED HE WAS READY FOR DISCHARGE AND DR ROME STATED HE WOULD LIKE THE PT TO BE MONITORED FOR AT LEAST 24 HOURS AFTER ADJUSTING HIS [place]. PT WAS IN AGREEMENT. PT DENIES HALLUCINATIONS AND DELUSIONS. INTERACTIVE WHEN APPROACHED BY STAFF. PT SITS IN THE BACK OF THE DINNINGROOM AND IS ISOLATIVE TO SELF. MEDICATION COMPLIANT WITHOUT DIFFICULTY. SEIZURE PRECAUTIONS MAINTAINED. Q15 MINUTE SAFETY CHECKS MAINTAINED. AMBULATORY WITH A STEADY GAIT. NO AREAS OF CONCERN NOTED TO SKIN. CONTINENT THIS SHIFT. WILL CONTINUE TO MONITOR PT BEHAVIORS WITH Q15 MINUTE SAFETY CHECKS.
[2019-06-26 08:54] VITALS: BP 122/64
--- NOTE | 2019-06-26 09:03 | NUR ---
Spoke with Urmila at [facility]. Due to Patient having [place] Medicaid they are unable to schedule him for Counseling appointments more than once per week and Pt. has refused in the past due to having to be seen in the office. Due to Insurance they are unable to do Telehealth for Counseling with Patient. Currently Pt. sees [facility] for Medications.
--- NOTE | 2019-06-26 11:29 | NUR ---
AM GROUP PT ATTENDED MORNING GROUP THERAPY FOR A FEW MINUTES, COLORED SOMETHING QUICKLY AND STATED, "I'M DONE FOR THE DAY". PT LEFT THE DAYROOM AND DID NOT RETURN.
--- NOTE | 2019-06-26 15:37 | NUR ---
PM GROUP PT DID NOT ATTEND AFTERNOON GROUP THERAPY. PT WAS IN BED RESTING.
[2019-06-26 19:01] VITALS: BP 108/60
--- NOTE | 2019-06-26 22:39 | NUR ---
NO ADVERSE BEHAVIORS NOTED. PT ALERT AND ORIENTED X4. PT CALM, COOPERATIVE, AND INTERACTIVE. PT PLEASANT UPON APPROACH AND TALKED WITH THIS NURSE HOW HE MIGHT BE ABLE TO GO HOME THIS WEEK AND IS FEELING BETTER. PT DENIES SI/HI AND HALLUCINATIONS. NO PARANOIA OR DELUSIONS NOTED. PT MEDICATION COMPLIANT WITHOUT DIFFICULTY AFTER REVIEW. PATIENT AMBULATORY WITH A STEADY GAIT AND INDEPENDENT IN ADL'S. NO PHYSICAL COMPLAINTS VOICED. PT CURRENTLY LAYING DOWN WITH EYES CLOSED, RESPIRATIONS EASY AND REGULAR, NO SIGNS OR SYMPTOMS OF DISTRESS NOTED. PLAN IS TO CONTINUE TO MONITOR MOOD AND BEHAVIORS. PROVIDE 1:1 WITH THERAPEUTIC INTERVENTIONS NEEDED. ENCOURAGE MEDICATION COMPLIANCE AND EDUCATE. MAINTAIN Q 15 MIN CHECKS.
--- NOTE | 2019-06-27 04:23 | NUR ---
24 HOUR CHART CHECK COMPLETED.
--- NOTE | 2019-06-27 05:26 | NUR ---
PATIENT OBSERVED ON Q 15 MIN CHECKS TO HAVE SLEPT APPROX 7 HOURS UNINTERRUPTED. NO SIGNS OR SYMPTOMS OF DISTRESS NOTED.
[2019-06-27 08:00] VITALS: BP 106/76
--- NOTE | 2019-06-27 09:14 | NUR ---
Treatment Plan meeting was held with Dr. Freitas, DULCE Gill, RN, AT, FIELD SERVICE ENGINEER-S and Bobbin Coil Winder. Plan for discharge When Stable. Pt. had requested discharge today and then had changed his mind. Will Follow and Secure Follow up appointments if Pt. is to discharge today.
--- NOTE | 2019-06-27 11:33 | NUR ---
AM GROUP PT DID NOT ATTEND MORNING GROUP THERAPY. PT WAS IN HIS ROOM RESTING.
[2019-06-27 19:11] VITALS: BP 138/65
--- NOTE | 2019-06-27 22:59 | NUR ---
PATIENT CAME TO THIS RN AND STATED HE WAS WASHINGHIS HANDS AND SPLASHED SOAP IN HIS EYE. OUTER CORNER OF LT EYE IS RED. GIVEN COOL COMPRESS FOR EYE. WILL MONITOR.
--- NOTE | 2019-06-28 01:19 | NUR ---
P-ISOLATIVE I-REDIRECTION WITH 1:1 THERAPEUTIC INTERVENTIONS. EDUCATE AND ENCOURAGE MEDICATION COMPLIANCE R-PATIENT COMPLIANT WITH HS MEDICATIONS. PATIENT PROVIDED NOURISHMENT AND FLUIDS AT HS. PATIENT ISOLATIVE TO ROOM AND OCCASSIONALLY COMING OUT TO NURSES STATION. PATIENT PREOCCUPIED WITH PUTTING A WASHCLOTH OVER HIS EYE. PATIENT DENIES PAIN AT HS TO EYE.PATIENT WITH NO HALLUCINATIONS OR DELUSIONS. PATIENT WITH NO SUICIDAL OR HOMICIDAL IDEATIONS. P-CONTINUE TO ENCOURAGE MEDICATION COMPLIANCE, ENCOURAGE GROUP THERAPY WHILE AWAKE
--- NOTE | 2019-06-28 05:46 | NUR ---
PATIENT OBSERVED ON Q 15 MIN CHECKS TO HAVE SLEPT APPROX 7 HOURS UNINTERRUPTED. PT SHOWERED THIS AM WITHOUT DIFFICULTY. NO SIGNS OR SYMPTOMS OF DISTRESS NOTED.
--- NOTE | 2019-06-28 07:30 | NUR ---
DR. MEJIA ON UNIT TO ASSESS PATIENT.
[2019-06-28 08:00] VITALS: BP 120/67
--- NOTE | 2019-06-28 15:07 | NUR ---
Shift chart check completed.
--- NOTE | 2019-06-28 18:43 | NUR ---
PT A&O X4. PT IS ISOLATIVE AND WITHDRAWN TO SELF. ENCOURAGED PT TO INTERACT WITH OTHER PTS AND WAS NOT EFFECTIVE. PT NOT BOWEL OBSESSED THIS SHIFT. CHANGED CLOTHING ONCE. STABLE MOOD. NO HALLUCINATIONJS OR DELUSIONS NOTED. AMBULATORY WITH A STEADY GAIT. WILL CONTINUE TO MONITOR BEHAVIORS WITH Q15 MINUTE SAFETY CHECKS AND ENCOURAGE PT TO INTERACT MORE.
[2019-06-28 20:00] VITALS: BP 121/64
--- NOTE | 2019-06-28 22:24 | NUR ---
P--OCD WITH FEELING DIRTY I--DISCUSSED MEDICATIONS AND WHAT THEY WERE FOR. OFFERED SNACK AND FLUIDS. ENCOURAGED PM CARE. ALLOWED CLIENT 1:1 TIME TO VENT. FLAT AFFECT. MINIMAL EYE CONTACT. R--FEW WORD SENTENCED. DENIES ANY PROBLEMS. STATES HE DID PM CARE. NOT INTERESTED IN THERAPY AT THIS TIME. CAME TO DESK APPROX 1/2 HOUR AFTER MED PASS TO BE SURE HE TOOK HIS MEDICATIONS P--MONITOR FOR CHANGES IN MOOD/BEHAVOR. MONITOR Q 15 MIN AND PRN FOR SAFETY. BE AVAILABLE FOR ANY SUPPORT NEEDED.
--- NOTE | 2019-06-29 02:12 | NUR ---
24 HR chart check completed.
--- NOTE | 2019-06-29 05:51 | NUR ---
SLEPT INTERUPTED 7 HOURS. UP TO BATHROOM A FEW TIMES. MOVES SELF WELL IN BED.
--- NOTE | 2019-06-29 05:51 | NUR ---
SLEPT INTERUPTED 7 HOURS. UP TO BATHROOM A FEW TIMES. MOVES SELF WELL IN BED.
--- NOTE | 2019-06-29 05:54 | NUR ---
24 HR chart check completed.
--- NOTE | 2019-06-29 05:55 | NUR ---
SLEPT INTERMITTENT 7 HOURS. UP TO BATHROOM A FEW TIMES. MOVES SELF AROUND WELL
--- NOTE | 2019-06-29 06:26 | NUR ---
C/O THAT HIS EAR WAS BLEEDING LAST NIGHT AFTER HE SCRATCHED IT. CANAL CHECK AND OUTER EAR CHECKED. NO SIGNS OF BLOOD NOTED. REINFORCED TO CLIENT TO NOT STICK THINGS IN HIS EARS. EVEN TOILTET PAPER AND FINGERS
[2019-06-29 07:18] VITALS: BP 117/76
--- NOTE | 2019-06-29 18:03 | NUR ---
PT A&O X4. PT CONTINUES TO BE PREOCCUPIED WITH CLEAN AND DIRTY. PT WILL ASK STAFF TO MOVE FROM A SEAT THAT HE HAS SNEEZED IN. PT EASILY REDIRECTED. WITHDRAWN TO SELF FOR THE MAJORITY OF THE DAY HOWEVER WILL INTERACT IF APPROACHED BY STAFF. PT CONTINUES TO HAVE A FLAT AFFECT. MOOD IS STABLE WITH A TOUCH OF ANXIETY AT TIMES DUE TO THINGS BEING CLEAN OR DIRTY. NO HALLUCINATIONS NOTED. CALM AND COOPERATIVE. MEDICATION COMPLIANT WITHOUT DIFFICULTY. AMBULATORY WITH A STEADY GAIT. CONTINENT. BEHAVIORS MONITORED WITH Q15 MINUTE SAFETY CHECKS. SEE [facility] FLOWSHEET FOR SPECIFIC MONITORING. DENIES SI/HI.
[2019-06-29 20:03] VITALS: BP 119/58
--- NOTE | 2019-06-29 23:01 | NUR ---
P---PARANOID, PREOCCUPIED, OBSESSED I- REVIEWED MEDICATIONS. PROVIDED 1:1 TIME. OFFERED EMOTIONAL SUPPORT. SET UP TO [facility] BY MILIEU WHOM ASSISTED HIM. 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 I JUST DON'T LIKE DIRT. I REALLY WANT TO GO HOME. I SHOULD GET TO GO HOME SUNDAY. CLIENT HAPPY WITH MAKEDA BUT APPROX 20 MINUTES LATER HE QUESTIONED MILIEU ABOUT THE RAZOR TO MAKE SURE THERE WAS NO BLOOD ON IT FROM HIM OR ANYONE ELSE BECAUSE HE DIDN'T CHECK IT. P--MONITOR FOR BEHAVIOR/MOOD. MONITOR Q 15 MIN AND PRN FOR SAFETY. EMOTIONAL SUPPORT PROVIDED
--- NOTE | 2019-06-30 03:01 | NUR ---
24 HR chart check completed.
--- NOTE | 2019-06-30 05:36 | NUR ---
SLEPT APPROX 6 HOURS. MOVES SELF AROUND IN BED. NO ISSUES NOTED
--- NOTE | 2019-06-30 06:35 | NUR ---
SLEPT APPROX 6 HOURS. MOVES SELF AROUND IN BED. NO ISSUES NOTED
[2019-06-30 07:34] VITALS: BP 138/72
[2019-06-30] MEDS ORDERED: CLONAZEPAM1 MG PO (08:22)
[2019-06-30] MEDS ORDERED: VRAYLAR3 MG PO (08:22)
[2019-06-30] MEDS ORDERED: BRIN10TA PO (08:22)
[2019-06-30] MEDS ORDERED: BRIN20TA PO (08:22)
--- NOTE | 2019-06-30 08:47 | NUR ---
DR MEJIA ON UNIT TO ASSESS PT, ADVISED OF PT DC TODAY.
--- NOTE | 2019-06-30 11:00 | NUR ---
DISCHARGE INSTRUCTIONS REVIEWED WITH PATIENT AND SIGNED. PATIENT CALLED BROTHER AND INFORMED HIM OF BEING DISCHARGED.
--- NOTE | 2019-06-30 11:27 | NUR ---
PT ALERT TO PERSON, PLACE, TIME AND SITUATION. PT MED COMPLIANT WITHOUT DIFFICULTY, MED EDUCATION PROVIDED. PT CALM, MOOD IS STABLE. PT DENIES ANY SUICIDAL THOUGHTS. NO HALLUCINATIONS OR DELUSIONS NOTED. PT AMULATORY THROUGHOUT UNIT, GAIT STEADY. PT CONTINENT OF BOWEL AND BLADDER. NO WOUNDS OR SKIN ISSUES NOTED. PT DISCHARGED TO HOME VIA [employer] PRIVATE CAR. PT BELONGINGS AND PT DC PACKET SENT WITH PT.
--- NOTE | 2019-06-30 11:33 | NUR ---
AM GROUP PT DID NOT ATTEND MORNING GROUP THERAPY. PT WAS READING TO BE DISCHARGED FROM THE UNIT THIS AFTERNOON.
--- NOTE | 2019-06-30 11:42 | NUR ---
ALL BELONGINGS GATHERED. PATIENT READY FOR DISCHARGE. BROTHER AT ER ENTRENCE. PATIENT ASSISTED TO WHEELCHAIR. ALL BELONGINGS AND DISCHARGE INSTRUCTIONS SENT WITH PATIENT OFF UNIT WITH MENTAL HEALTH WORKER TO PRIVATE VEHICLE.
--- NOTE | 2019-06-30 11:52 | NUR ---
Patient discharged today to home. Follow-up was scheduled with [facility]. While at [facility], pt's behaviors improved. Pt interacted minimally with peers and staff.
== END 2019-06-30 11:42 | disposition home or self-care (01) | DRG 885 ==
LOC: 3N 13:31
PROVIDERS: ADMIT Psychiatry & Neurology Psychiatry
DX: F33.3 Major depressive disorder, recurrent, severe with psychotic symptoms (principal); R45.851 Suicidal ideations; D69.6 Thrombocytopenia, unspecified; F42.9 Obsessive-compulsive disorder, unspecified; G40.909 Epilepsy, unspecified, not intractable, without status epilepticus; I10 Essential (primary) hypertension; K21.9 Gastro-esophageal reflux disease without esophagitis; E78.5 Hyperlipidemia, unspecified; F41.9 Anxiety disorder, unspecified; E83.41 Hypermagnesemia; D86.9 Sarcoidosis, unspecified; E66.9 Obesity, unspecified; R73.9 Hyperglycemia, unspecified; M48.061 Spinal stenosis, lumbar region without neurogenic claudication; Z68.27 Body mass index [BMI] 27.0-27.9, adult; Z79.899 Other long term (current) drug therapy; Z88.0 Allergy status to penicillin; Z88.1 Allergy status to other antibiotic agents; Z82.49 Family history of ischemic heart disease and other diseases of the circulatory system

== ENCOUNTER 2019-07-30 18:58 | Emergency (ER) | payer MEDICARE ==
[~2019-07-30] VITALS: Ht 182.8 cm; Wt 90.7 kg
[~2019-07-30 18:58] MED LIST changes: +BRIN10TA PO; +LACTULOSE10 GM/151 PO; +MIRALAX17 GM PO; +PROTONIX20 MG PO; +RISPERDAL0.5 MG PO; +RISPERDAL1 M1 PO; +VRAYLAR3 MG PO
[2019-07-30 19:06] VITALS: BP 120/69
[2019-07-30] MEDS ORDERED: PREDNISONE10 M1 PO (20:45)
== END 2019-07-30 21:15 | disposition home or self-care (01) ==
LOC: ED 18:58
DX: J45.909 Unspecified asthma, uncomplicated (principal); F41.9 Anxiety disorder, unspecified; F32.9 Major depressive disorder, single episode, unspecified; K21.9 Gastro-esophageal reflux disease without esophagitis; R56.9 Unspecified convulsions; E78.5 Hyperlipidemia, unspecified; Z88.0 Allergy status to penicillin; Z79.899 Other long term (current) drug therapy

== ENCOUNTER 2019-08-03 01:36 | Inpatient (IN) | payer MEDICARE ==
[~2019-08-03 01:36] MED LIST changes: +PREDNISONE10 M1 PO
[2019-08-03 02:10] VITALS: BP 132/75
[2019-08-03 02:17] VITALS: BP 132/75
[2019-08-03 07:17] LABS: CHOLESTEROL 214 mg/dL (<200); HDL CHOLESTEROL 31 mg/dl (40-60); LDL CHOLESTEROL 145 mg/dL (9-159); TRIGLYCERIDES 189 mg/dl (<150); VLDL CHOLESTEROL 38 mg/dL (6-40)
[2019-08-03 07:53] VITALS: BP 125/67
[2019-08-03 08:14] LABS: VITAMIN D, 25-HYDROXY 44.8 ng/mL (30-100)
[2019-08-03 20:00] VITALS: BP 109/62
[2019-08-04 07:42] VITALS: BP 120/71
[2019-08-04 20:00] VITALS: BP 127/72
[2019-08-05 07:42] VITALS: BP 118/72
[2019-08-05 20:00] VITALS: BP 112/68
[2019-08-06 07:44] VITALS: BP 119/66
[2019-08-06 19:59] VITALS: BP 127/68
[2019-08-07 08:00] VITALS: BP 136/80
[2019-08-07 20:00] VITALS: BP 123/61
[2019-08-08] MEDS ORDERED: BRIN10TA PO (07:34)
[2019-08-08] MEDS ORDERED: BRIN20TA PO (07:34)
[2019-08-08] MEDS ORDERED: REXULTI2 MG PO (07:42)
[2019-08-08 07:56] VITALS: BP 116/76
== END 2019-08-08 12:40 | disposition home or self-care (01) | DRG 885 ==
LOC: 3N 01:36
PROVIDERS: ADMIT Psychiatry & Neurology Psychiatry
DX: F33.3 Major depressive disorder, recurrent, severe with psychotic symptoms (principal); R45.851 Suicidal ideations; D86.9 Sarcoidosis, unspecified; I10 Essential (primary) hypertension; F42.9 Obsessive-compulsive disorder, unspecified; G40.909 Epilepsy, unspecified, not intractable, without status epilepticus; K21.9 Gastro-esophageal reflux disease without esophagitis; E78.5 Hyperlipidemia, unspecified; F41.9 Anxiety disorder, unspecified; R73.03 Prediabetes; E66.9 Obesity, unspecified; J45.20 Mild intermittent asthma, uncomplicated; R73.9 Hyperglycemia, unspecified; Z88.0 Allergy status to penicillin; Z88.1 Allergy status to other antibiotic agents; Z82.49 Family history of ischemic heart disease and other diseases of the circulatory system; Z79.899 Other long term (current) drug therapy; Z68.27 Body mass index [BMI] 27.0-27.9, adult

== ENCOUNTER 2019-08-13 13:48 | Emergency (ER) | payer MEDICARE ==
[~2019-08-13] VITALS: Ht 182.8 cm; Wt 90.7 kg
[~2019-08-13 13:48] MED LIST changes: +REXULTI2 MG PO
[2019-08-13 13:57] VITALS: BP 102/69
[2019-08-13 15:14] LABS: BASO % 0.5 % (0.0-1.0); EOS % 0.4 % (1.0-4.0); HEMATOCRIT 45.4 % (42.0-52.0); LYMPH # 1.3 10*3/uL (1.3-4.4); LYMPH % 17.2 % (27.0-41.0); MEAN CELL VOLUME 94.4 fl (80.0-94.0); MEAN CORPUSCULAR HGB 31.8 pg (27.0-31.0); MEAN CORPUSCULAR HGB CONC 33.7 g/dl (33.0-37.0); MEAN PLATELET VOLUME 11.6 fl (9.6-12.3); MONO # 0.8 10*3/uL (0.1-1.0); MONO % 10.6 % (3.0-9.0); NEUT # 5.4 10*3/uL (2.3-7.9); NEUT % 70.9 % (47.0-73.0); PLATELET COUNT AUTOMATED 147 10*3/uL (130-400); RED BLOOD COUNT 4.81 10*6/uL (4.50-5.90); RED CELL DISTRI WIDTH 12.2 % (0-14.5); WHITE BLOOD COUNT 7.6 10*3/uL (4.8-10.8)
[2019-08-13 15:33] LABS: ACT PARTIAL THROMBO TIME 27.3 SECONDS (20.0-32.1)
[2019-08-13 15:35] LABS: ALBUMIN 3.6 gm/dl (3.1-4.5); ALKALINE PHOSPHATASE 81 U/L (45-117); BUN 12 mg/dl (7-24); CHLORIDE 106 mmol/L (98-107); CREATININE 0.77 mg/dL (0.70-1.30); LIPASE 71 U/L (73-393); POTASSIUM 3.8 mmol/L (3.5-5.1); SGOT/AST 35 IU/L (3-35); SGPT/ALT 79 U/L (12-78); SODIUM 139 mmol/L (136-145); TOTAL PROTEIN 7.2 gm/dL (6.4-8.2)
[2019-08-13 15:49] LABS: URINE AMPHETAMINES < 1000 (1000ng/ml); URINE BARBITURATES < 200 (200ng/ml); URINE BENZODIAZEPINES < 200 (200ng/ml); URINE CANNABINOIDS (THC) < 50 (50ng/ml); URINE COCAINE < 300 (300ng/ml); URINE METHADONE < 300 (300ng/ml); URINE OPIATES < 300 (300ng/ml)
[2019-08-13 15:51] LABS: ACETAMINOPHEN (TYLENOL) < 5.0 ug/ml (10-30); ETHYL ALCOHOL < 3.0 mg/dl (<3)
[2019-08-13 15:51] LABS: URINE PHENCYCLIDINE < 25 (25ng/ml)
[2019-08-13 15:52] LABS: TROPONIN I < 0.015 ng/ml (<0.045)
[2019-08-13 16:11] LABS: BILIRUBIN NEGATIVE (NEGATIVE); BLOOD NEGATIVE (NEGATIVE); CLARITY SL CLOUDY (CLEAR); COLOR YELLOW (YELLOW); GLUCOSE NEGATIVE (NEGATIVE); KETONE NEGATIVE (NEGATIVE); LEUKO ESTERASE NEGATIVE (NEGATIVE); NITRITE NEGATIVE (NEGATIVE); PH 6.5 (5.0-9.0); UROBILINOGEN 0.2 E.U./dl (0.2-1.0)
[2019-08-13 16:12] LABS: BACTERIA 1+; MUCOUS 2+
== END 2019-08-13 17:09 | disposition home or self-care (01) ==
LOC: ED 13:48
PROVIDERS: Emergency Medicine
DX: F32.9 Major depressive disorder, single episode, unspecified (principal); J45.909 Unspecified asthma, uncomplicated; K21.9 Gastro-esophageal reflux disease without esophagitis; I10 Essential (primary) hypertension; R56.9 Unspecified convulsions; E78.5 Hyperlipidemia, unspecified; Z79.899 Other long term (current) drug therapy; Z88.0 Allergy status to penicillin; Z88.8 Allergy status to other drugs, medicaments and biological substances

== ENCOUNTER 2019-09-10 08:51 | Emergency (ER) | payer MEDICARE ==
[~2019-09-10] VITALS: Ht 182.8 cm; Wt 81.6 kg
[2019-09-10 08:58] VITALS: BP 109/69
[2019-09-10 10:05] LABS: BASO % 0.5 % (0.0-1.0); EOS % 0.5 % (1.0-4.0); HEMATOCRIT 44.5 % (42.0-52.0); LYMPH % 15.6 % (27.0-41.0); MEAN CELL VOLUME 95.3 fl (80.0-94.0); MEAN CORPUSCULAR HGB 31.7 pg (27.0-31.0); MEAN CORPUSCULAR HGB CONC 33.3 g/dl (33.0-37.0); MEAN PLATELET VOLUME 11.9 fl (9.6-12.3); MONO # 0.6 10*3/uL (0.1-1.0); NEUT # 4.5 10*3/uL (2.3-7.9); NEUT % 73.1 % (47.0-73.0); PLATELET COUNT AUTOMATED 125 10*3/uL (130-400); RED BLOOD COUNT 4.67 10*6/uL (4.50-5.90); RED CELL DISTRI WIDTH 12.8 % (0-14.5); WHITE BLOOD COUNT 6.1 10*3/uL (4.8-10.8)
[2019-09-10 10:07] LABS: ALBUMIN 3.5 gm/dl (3.1-4.5); ALKALINE PHOSPHATASE 77 U/L (45-117); BUN 14 mg/dl (7-24); CHLORIDE 108 mmol/L (98-107); CREATININE 0.83 mg/dL (0.70-1.30); POTASSIUM 4.4 mmol/L (3.5-5.1); SGOT/AST 32 IU/L (3-35); SGPT/ALT 79 U/L (12-78); SODIUM 141 mmol/L (136-145); TOTAL PROTEIN 7.1 gm/dL (6.4-8.2)
[2019-09-10] MEDS ORDERED: SURFAK240 MG PO (11:31)
== END 2019-09-10 11:35 | disposition home or self-care (01) ==
LOC: ED 08:51
PROVIDERS: Emergency Medicine
DX: K59.00 Constipation, unspecified (principal); J45.909 Unspecified asthma, uncomplicated; K21.9 Gastro-esophageal reflux disease without esophagitis; I10 Essential (primary) hypertension; R56.9 Unspecified convulsions; Z88.0 Allergy status to penicillin; Z88.8 Allergy status to other drugs, medicaments and biological substances; Z79.899 Other long term (current) drug therapy; Z79.2 Long term (current) use of antibiotics

== ENCOUNTER 2019-12-04 08:11 | Emergency (ER) | payer MEDICARE ==
[~2019-12-04] VITALS: Ht 182.8 cm; Wt 77.1 kg
[~2019-12-04 08:11] MED LIST changes: +SURFAK240 MG PO
[2019-12-04 08:15] VITALS: BP 117/71
[2019-12-04 09:00] LABS: BASO % 0.2 % (0.0-1.0); HEMATOCRIT 43.4 % (42.0-52.0); LYMPH # 0.9 10*3/uL (1.3-4.4); MEAN CELL VOLUME 96.2 fl (80.0-94.0); MEAN CORPUSCULAR HGB 31.7 pg (27.0-31.0); MEAN CORPUSCULAR HGB CONC 32.9 g/dl (33.0-37.0); MEAN PLATELET VOLUME 10.7 fl (9.6-12.3); MONO # 0.6 10*3/uL (0.1-1.0); MONO % 13.2 % (3.0-9.0); NEUT # 2.8 10*3/uL (2.3-7.9); NEUT % 66.1 % (47.0-73.0); PLATELET COUNT AUTOMATED 196 10*3/uL (130-400); RED BLOOD COUNT 4.51 10*6/uL (4.50-5.90); RED CELL DISTRI WIDTH 11.7 % (0-14.5); WHITE BLOOD COUNT 4.3 10*3/uL (4.8-10.8)
[2019-12-04 09:14] LABS: ALBUMIN 3.3 gm/dl (3.1-4.5); ALKALINE PHOSPHATASE 175 U/L (45-117); BUN 15 mg/dl (7-24); CHLORIDE 103 mmol/L (98-107); CREATININE 0.82 mg/dL (0.70-1.30); POTASSIUM 4.1 mmol/L (3.5-5.1); SGOT/AST 53 IU/L (3-35); SGPT/ALT 77 U/L (12-78); SODIUM 138 mmol/L (136-145)
== END 2019-12-04 11:45 | disposition home or self-care (01) ==
LOC: ED 08:11
PROVIDERS: Emergency Medicine
DX: T17.298A Other foreign object in pharynx causing other injury, initial encounter (principal); Z88.0 Allergy status to penicillin; Z88.1 Allergy status to other antibiotic agents; Z79.899 Other long term (current) drug therapy; Y92.89 Other specified places as the place of occurrence of the external cause

== ENCOUNTER → 2019-12-10 | Outpatient (CLI) | payer MEDICARE ==
[2019-12-10 11:21] LABS: ALBUMIN 3.4 gm/dl (3.1-4.5); BILIRUBIN, DIRECT 0.3 mg/dL (0.0-0.2)
[2019-12-10 11:32] LABS: PHENYTOIN (DILANTIN) 6.7 ug/ml (10-20)
== END | disposition home or self-care (01) ==
LOC: LAB 10:25
PROVIDERS: ATTEND Nurse Practitioner Family
DX: R56.9 Unspecified convulsions (principal)

== ENCOUNTER 2020-01-21 14:40 | Emergency (ER) | payer MEDICARE ==
[~2020-01-21] VITALS: Wt 72.6 kg
[2020-01-21 15:01] VITALS: BP 119/64
== END 2020-01-21 18:10 | disposition home or self-care (01) ==
LOC: ED 14:40
DX: T17.208A Unspecified foreign body in pharynx causing other injury, initial encounter (principal); K59.00 Constipation, unspecified; Z88.0 Allergy status to penicillin; Z88.8 Allergy status to other drugs, medicaments and biological substances; Z79.899 Other long term (current) drug therapy; X58.XXXA Exposure to other specified factors, initial encounter; Y93.89 Activity, other specified; Y92.89 Other specified places as the place of occurrence of the external cause; Y99.8 Other external cause status

== ENCOUNTER 2020-02-01 21:18 | Emergency (ER) | payer MEDICARE ==
[~2020-02-01] VITALS: Ht 182.8 cm; Wt 72.6 kg
[2020-02-01 21:26] VITALS: BP 144/73
[2020-02-01] MEDS ORDERED: PROAIR DIGIHAL90 MCG INH (21:35)
[2020-02-01] MEDS ORDERED: ESOMEPRAZOLE MA40 M1 PO (21:37)
[2020-02-01] MEDS ORDERED: VITAMIN D350 MCG PO (21:40)
[2020-02-01] MEDS ORDERED: CENTRUM ADULTS1 EACH PO (21:40)
[2020-02-01] MEDS ORDERED: ZYPREXA10 M1 PO (21:46)
== END 2020-02-02 00:45 | disposition home or self-care (01) ==
LOC: ED 21:18
DX: K59.00 Constipation, unspecified (principal); I10 Essential (primary) hypertension; K21.9 Gastro-esophageal reflux disease without esophagitis; E78.5 Hyperlipidemia, unspecified; E66.9 Obesity, unspecified; J45.909 Unspecified asthma, uncomplicated; Z88.0 Allergy status to penicillin; Z88.1 Allergy status to other antibiotic agents; Z79.899 Other long term (current) drug therapy

== ENCOUNTER → 2020-02-08 | Outpatient (CLI) | payer MEDICARE ==
[~2020-02-08] MED LIST changes: +CENTRUM ADULTS1 EACH PO; +ESOMEPRAZOLE MA40 M1 PO; +VITAMIN D350 MCG PO; +ZYPREXA10 M1 PO
== END | disposition home or self-care (01) ==
LOC: COVID19 09:07
PROVIDERS: ATTEND Internal Medicine Gastroenterology
DX: Z20.828 Contact with and (suspected) exposure to other viral communicable diseases (principal)

== ENCOUNTER → 2020-05-27 | Outpatient (CLI) | payer MEDICARE ==
[2020-05-27 10:36] LABS: ALBUMIN 3.5 gm/dl (3.1-4.5); ALKALINE PHOSPHATASE 64 U/L (45-117); BILIRUBIN, DIRECT < 0.1 mg/dL (0.0-0.2); SGOT/AST 10 IU/L (3-35); SGPT/ALT 20 U/L (12-78); TOTAL PROTEIN 7.2 gm/dL (6.4-8.2)
[2020-05-27 10:37] LABS: BASO % 0.5 % (0.0-1.0); HEMATOCRIT 44.9 % (42.0-52.0); LYMPH # 1.6 10*3/uL (1.3-4.4); LYMPH % 28.4 % (27.0-41.0); MEAN CELL VOLUME 98.2 fl (80.0-94.0); MEAN CORPUSCULAR HGB 31.9 pg (27.0-31.0); MEAN CORPUSCULAR HGB CONC 32.5 g/dl (33.0-37.0); MEAN PLATELET VOLUME 11.5 fl (9.6-12.3); MONO # 0.4 10*3/uL (0.1-1.0); MONO % 7.5 % (3.0-9.0); NEUT # 3.5 10*3/uL (2.3-7.9); NEUT % 63.2 % (47.0-73.0); PLATELET COUNT AUTOMATED 150 10*3/uL (130-400); RED BLOOD COUNT 4.57 10*6/uL (4.50-5.90); RED CELL DISTRI WIDTH 12.7 % (0-14.5); WHITE BLOOD COUNT 5.6 10*3/uL (4.8-10.8)
[2020-05-27 10:45] LABS: PHENYTOIN (DILANTIN) 18.3 ug/ml (10-20)
== END | disposition home or self-care (01) ==
LOC: LAB 09:27
PROVIDERS: ATTEND Psychiatry & Neurology Neurology
DX: R56.9 Unspecified convulsions (principal)

== ENCOUNTER 2021-01-22 07:56 | Emergency (ER) | payer MEDICARE ==
[~2021-01-22] VITALS: Wt 77.1 kg
[2021-01-22 08:01] VITALS: BP 106/57
[2021-01-22 08:34] LABS: BASO % 0.3 % (0.0-1.0); HEMATOCRIT 38.9 % (42.0-52.0); LYMPH % 9.7 % (27.0-41.0); MEAN CELL VOLUME 94.2 fl (80.0-94.0); MEAN CORPUSCULAR HGB 32.2 pg (27.0-31.0); MEAN CORPUSCULAR HGB CONC 34.2 g/dl (33.0-37.0); MEAN PLATELET VOLUME 9.8 fl (9.6-12.3); MONO # 0.9 10*3/uL (0.1-1.0); MONO % 9.2 % (3.0-9.0); NEUT % 80.2 % (47.0-73.0); PLATELET COUNT AUTOMATED 221 10*3/uL (130-400); RED BLOOD COUNT 4.13 10*6/uL (4.50-5.90); RED CELL DISTRI WIDTH 11.2 % (0-14.5); WHITE BLOOD COUNT 9.9 10*3/uL (4.8-10.8)
[2021-01-22 08:53] LABS: ALBUMIN 2.8 gm/dl (3.1-4.5); ALKALINE PHOSPHATASE 77 U/L (45-117); BUN 16 mg/dl (7-24); CHLORIDE 100 mmol/L (98-107); CREATININE 0.81 mg/dL (0.70-1.30); POTASSIUM 4.1 mmol/L (3.5-5.1); SGOT/AST 23 IU/L (3-35); SGPT/ALT 25 U/L (12-78); SODIUM 136 mmol/L (136-145); TOTAL PROTEIN 8.1 gm/dL (6.4-8.2)
[2021-01-22 08:54] LABS: TROPONIN I < 0.015 ng/ml (<0.045)
[2021-01-22] MEDS ORDERED: CEFPODOXIME PR200 M1 PO ×2 (10:14→10:23)
[2021-01-22] MEDS ORDERED: VIBRAMYCIN100 MG PO ×2 (10:14→10:23)
== END 2021-01-22 10:36 | disposition home or self-care (01) ==
LOC: ED 07:56
PROVIDERS: Emergency Medicine
DX: J18.1 Lobar pneumonia, unspecified organism (principal); G40.909 Epilepsy, unspecified, not intractable, without status epilepticus; K21.9 Gastro-esophageal reflux disease without esophagitis; E78.5 Hyperlipidemia, unspecified; I10 Essential (primary) hypertension; Z88.0 Allergy status to penicillin; Z88.1 Allergy status to other antibiotic agents; Z79.899 Other long term (current) drug therapy

== ENCOUNTER 2021-01-24 09:35 | Emergency (ER) | payer MEDICARE ==
[~2021-01-24] VITALS: Wt 77.1 kg
[~2021-01-24 09:35] MED LIST changes: +CEFPODOXIME PR200 M1 PO; +VIBRAMYCIN100 MG PO
[2021-01-24 09:50] VITALS: BP 120/63
[2021-01-24 11:54] LABS: BASO % 0.4 % (0.0-1.0); HEMATOCRIT 41.6 % (42.0-52.0); LYMPH # 1.1 10*3/uL (1.3-4.4); LYMPH % 11.6 % (27.0-41.0); MEAN CELL VOLUME 93.3 fl (80.0-94.0); MEAN CORPUSCULAR HGB 31.8 pg (27.0-31.0); MEAN CORPUSCULAR HGB CONC 34.1 g/dl (33.0-37.0); MEAN PLATELET VOLUME 9.9 fl (9.6-12.3); MONO # 0.7 10*3/uL (0.1-1.0); MONO % 7.6 % (3.0-9.0); NEUT # 7.4 10*3/uL (2.3-7.9); NEUT % 79.6 % (47.0-73.0); PLATELET COUNT AUTOMATED 336 10*3/uL (130-400); RED BLOOD COUNT 4.46 10*6/uL (4.50-5.90); RED CELL DISTRI WIDTH 11.3 % (0-14.5); WHITE BLOOD COUNT 9.3 10*3/uL (4.8-10.8)
[2021-01-24 12:11] LABS: ALKALINE PHOSPHATASE 87 U/L (45-117); BUN 18 mg/dl (7-24); CHLORIDE 99 mmol/L (98-107); POTASSIUM 4.3 mmol/L (3.5-5.1); SGOT/AST 23 IU/L (3-35); SGPT/ALT 25 U/L (12-78); SODIUM 134 mmol/L (136-145); TOTAL PROTEIN 8.5 gm/dL (6.4-8.2)
[2021-01-24] MEDS ORDERED: ZOFRAN4 MG PO (13:13)
== END 2021-01-24 11:27 | disposition home or self-care (01) ==
LOC: ED 09:35
PROVIDERS: Student in an Organized Health Care Education/Training Program
DX: K52.9 Noninfective gastroenteritis and colitis, unspecified (principal); Z88.0 Allergy status to penicillin; Z88.1 Allergy status to other antibiotic agents; Z79.899 Other long term (current) drug therapy

== ENCOUNTER → 2021-05-27 | Outpatient (CLI) | payer MEDICARE ==
[~2021-05-27] MED LIST changes: +ZOFRAN4 MG PO
[2021-05-27 07:46] LABS: BASO % 0.6 % (0.0-1.0); HEMATOCRIT 45.3 % (42.0-52.0); LYMPH # 1.9 10*3/uL (1.3-4.4); LYMPH % 28.4 % (27.0-41.0); MEAN CELL VOLUME 98.1 fl (80.0-94.0); MEAN CORPUSCULAR HGB 33.3 pg (27.0-31.0); MEAN PLATELET VOLUME 10.9 fl (9.6-12.3); MONO # 0.7 10*3/uL (0.1-1.0); NEUT # 4.1 10*3/uL (2.3-7.9); NEUT % 60.7 % (47.0-73.0); PLATELET COUNT AUTOMATED 165 10*3/uL (130-400); RED BLOOD COUNT 4.62 10*6/uL (4.50-5.90); RED CELL DISTRI WIDTH 12.7 % (0-14.5); WHITE BLOOD COUNT 6.7 10*3/uL (4.8-10.8)
[2021-05-27 08:14] LABS: ALKALINE PHOSPHATASE 61 U/L (45-117); SGOT/AST 12 IU/L (3-35); SGPT/ALT 24 U/L (12-78); TOTAL PROTEIN 7.3 gm/dL (6.4-8.2)
[2021-05-27 08:41] LABS: PHENYTOIN (DILANTIN) 16.2 ug/ml (10-20)
== END | disposition home or self-care (01) ==
LOC: LAB 07:16
PROVIDERS: ATTEND Psychiatry & Neurology Neurology
DX: T88.7XXA Unspecified adverse effect of drug or medicament, initial encounter (principal); T50.905A Adverse effect of unspecified drugs, medicaments and biological substances, initial encounter; Y92.89 Other specified places as the place of occurrence of the external cause

== ENCOUNTER → 2021-05-30 | Outpatient (CLI) | payer MEDICARE | LOC: CARD 07:39 | PROVIDERS: ATTEND Internal Medicine Pulmonary Disease | DX: I31.3 Pericardial effusion (noninflammatory) (principal); K80.50 Calculus of bile duct without cholangitis or cholecystitis without obstruction; R06.00 Dyspnea, unspecified; D68.9 Coagulation defect, unspecified; Z79.899 Other long term (current) drug therapy ==

== ENCOUNTER → 2023-01-19 | Outpatient (CLI) | payer MEDICARE | END | disposition home or self-care (01) | LOC: RAD 10:15 | PROVIDERS: ATTEND Physician Assistant | DX: I10 Essential (primary) hypertension (principal); F41.9 Anxiety disorder, unspecified; R56.9 Unspecified convulsions; R00.2 Palpitations; M35.3 Polymyalgia rheumatica ==

== ENCOUNTER → 2023-01-26 | Outpatient (CLI) | payer MEDICARE | END | disposition home or self-care (01) | LOC: CARD 00:14 | PROVIDERS: ATTEND Physician Assistant | DX: I10 Essential (primary) hypertension (principal); F41.9 Anxiety disorder, unspecified; M35.3 Polymyalgia rheumatica; R56.9 Unspecified convulsions; R00.2 Palpitations ==

== ENCOUNTER 2023-02-09 07:37 | Emergency (ER) | payer MEDICARE ==
[~2023-02-09] VITALS: Wt 81.6 kg
[2023-02-09 08:11] VITALS: BP 119/50
[2023-02-09 09:32] LABS: BASO % 0.3 % (0.0-1.0); EOS % 0.2 % (1.0-4.0); HEMATOCRIT 41.8 % (42.0-52.0); LYMPH # 0.6 10*3/uL (1.3-4.4); LYMPH % 10.7 % (27.0-41.0); MEAN CELL VOLUME 96.5 fl (80.0-94.0); MEAN CORPUSCULAR HGB CONC 34.2 g/dl (33.0-37.0); MEAN PLATELET VOLUME 10.3 fl (9.6-12.3); MONO # 0.8 10*3/uL (0.1-1.0); MONO % 14.4 % (3.0-9.0); NEUT # 4.3 10*3/uL (2.3-7.9); NEUT % 74.1 % (47.0-73.0); PLATELET COUNT AUTOMATED 145 10*3/uL (130-400); RED BLOOD COUNT 4.33 10*6/uL (4.50-5.90); WHITE BLOOD COUNT 5.8 10*3/uL (4.8-10.8)
[2023-02-09 09:55] LABS: ALKALINE PHOSPHATASE 76 U/L (46-116); BUN 11 mg/dl (9-23); CHLORIDE 107 mmol/L (98-107); SGPT/ALT 18 U/L (5-49); TOTAL PROTEIN 7.3 gm/dL (6.0-8.0)
[2023-02-09] MEDS ORDERED: AVPAK AZITHROM250 M1 PO (10:25)
[2023-02-09] MEDS ORDERED: ONDANSETRON4 MG SL (10:25)
== END 2023-02-09 10:44 | disposition home or self-care (01) ==
LOC: ED 07:37
PROVIDERS: Emergency Medicine
DX: J45.909 Unspecified asthma, uncomplicated (principal); Z20.822 Contact with and (suspected) exposure to COVID-19; H92.03 Otalgia, bilateral; R51.9 Headache, unspecified; F32.A Depression, unspecified; F41.9 Anxiety disorder, unspecified; K21.9 Gastro-esophageal reflux disease without esophagitis; I10 Essential (primary) hypertension; E78.5 Hyperlipidemia, unspecified; F17.210 Nicotine dependence, cigarettes, uncomplicated; Z88.0 Allergy status to penicillin; Z88.1 Allergy status to other antibiotic agents; Z79.899 Other long term (current) drug therapy; Z79.2 Long term (current) use of antibiotics; Z98.890 Other specified postprocedural states

== ENCOUNTER 2023-02-18 14:36 | Emergency (ER) | payer MEDICARE ==
[~2023-02-18] VITALS: Ht 175.2 cm; Wt 72.6 kg
[~2023-02-18 14:36] MED LIST changes: +AVPAK AZITHROM250 M1 PO; +ONDANSETRON4 MG SL
[2023-02-18] MEDS ORDERED: BENZTROPINE MESY1 MG PO (14:44)
[2023-02-18] MEDS ORDERED: PROPRANOLOL HCL10 MG PO (14:48)
[2023-02-18 15:12] LABS: BASO # 0.1 10*3/uL (0.0-0.1); BASO % 0.7 % (0.0-1.0); EOS # 0.1 10*3/uL (0.0-0.4); EOS % 0.7 % (1.0-4.0); HEMATOCRIT 41.7 % (42.0-52.0); LYMPH # 1.9 10*3/uL (1.3-4.4); LYMPH % 22.9 % (27.0-41.0); MEAN CELL VOLUME 94.1 fl (80.0-94.0); MEAN CORPUSCULAR HGB 32.3 pg (27.0-31.0); MEAN CORPUSCULAR HGB CONC 34.3 g/dl (33.0-37.0); MEAN PLATELET VOLUME 9.8 fl (9.6-12.3); MONO # 0.8 10*3/uL (0.1-1.0); MONO % 9.3 % (3.0-9.0); NEUT # 5.5 10*3/uL (2.3-7.9); NEUT % 65.6 % (47.0-73.0); PLATELET COUNT AUTOMATED 354 10*3/uL (130-400); RED BLOOD COUNT 4.43 10*6/uL (4.50-5.90); RED CELL DISTRI WIDTH 11.9 % (0-14.5); WHITE BLOOD COUNT 8.4 10*3/uL (4.8-10.8)
[2023-02-18 15:36] LABS: ALKALINE PHOSPHATASE 83 U/L (46-116); BUN 16 mg/dl (9-23); CHLORIDE 109 mmol/L (98-107); LIPASE 40 U/L (12-53); POTASSIUM 4.1 mmol/L (3.4-5.1); SGPT/ALT 79 U/L (5-49); TOTAL PROTEIN 7.5 gm/dL (6.0-8.0)
[2023-02-18] MEDS ORDERED: CIPRO500 MG PO (19:38)
[2023-02-18] MEDS ORDERED: VIBRAMYCIN100 MG PO (19:39)
[2023-02-18 20:05] VITALS: BP 123/59
== END 2023-02-18 20:07 | disposition home or self-care (01) ==
LOC: ED 14:36
PROVIDERS: Physician Assistant Medical
DX: J18.9 Pneumonia, unspecified organism (principal); F41.9 Anxiety disorder, unspecified; J45.909 Unspecified asthma, uncomplicated; I10 Essential (primary) hypertension; E78.5 Hyperlipidemia, unspecified; K21.9 Gastro-esophageal reflux disease without esophagitis; Z88.0 Allergy status to penicillin; Z88.1 Allergy status to other antibiotic agents; Z79.899 Other long term (current) drug therapy; Z79.2 Long term (current) use of antibiotics; Z98.890 Other specified postprocedural states

== ENCOUNTER → 2023-03-08 | Outpatient (CLI) | payer MEDICARE ==
[~2023-03-08] MED LIST changes: +BENZTROPINE MESY1 MG PO; +CIPRO500 MG PO; +PROPRANOLOL HCL10 MG PO
== END | disposition home or self-care (01) ==
LOC: CARD 03:31
PROVIDERS: ATTEND Physician Assistant
DX: I31.39 Other pericardial effusion (noninflammatory) (principal)

== ENCOUNTER → 2023-03-16 | Outpatient (CLI) | payer MEDICARE | END | disposition home or self-care (01) | LOC: CT 03:07 | PROVIDERS: ATTEND Physician Assistant | DX: J18.9 Pneumonia, unspecified organism (principal); K76.0 Fatty (change of) liver, not elsewhere classified; I25.10 Atherosclerotic heart disease of native coronary artery without angina pectoris; K80.20 Calculus of gallbladder without cholecystitis without obstruction; K76.89 Other specified diseases of liver; D86.9 Sarcoidosis, unspecified; J98.11 Atelectasis ==

== ENCOUNTER → 2023-05-15 | Outpatient (CLI) | payer MEDICARE | LOC: CARD 00:57 | PROVIDERS: ATTEND Internal Medicine Cardiovascular Disease | DX: I31.39 Other pericardial effusion (noninflammatory) (principal); I11.9 Hypertensive heart disease without heart failure ==

== ENCOUNTER 2023-06-10 11:05 | Emergency (ER) | payer MEDICARE ==
[~2023-06-10] VITALS: Ht 182.8 cm; Wt 116.6 kg
[2023-06-10 11:10] VITALS: BP 138/78
[2023-06-10] MEDS ORDERED: STOOL SOFTENER100 M3 PO (11:23)
[2023-06-10] MEDS ORDERED: TOPAMAX25 M3 PO (11:27)
[2023-06-10 11:46] LABS: BASO % 0.6 % (0.0-1.0); EOS % 0.8 % (1.0-4.0); HEMATOCRIT 44.3 % (42.0-52.0); LYMPH # 1.2 10*3/uL (1.3-4.4); LYMPH % 23.5 % (27.0-41.0); MEAN CELL VOLUME 95.9 fl (80.0-94.0); MEAN CORPUSCULAR HGB 31.8 pg (27.0-31.0); MEAN CORPUSCULAR HGB CONC 33.2 g/dl (33.0-37.0); MEAN PLATELET VOLUME 10.5 fl (9.6-12.3); MONO # 0.6 10*3/uL (0.1-1.0); MONO % 11.5 % (3.0-9.0); NEUT # 3.3 10*3/uL (2.3-7.9); NEUT % 63.4 % (47.0-73.0); PLATELET COUNT AUTOMATED 142 10*3/uL (130-400); RED BLOOD COUNT 4.62 10*6/uL (4.50-5.90); RED CELL DISTRI WIDTH 12.6 % (0-14.5); WHITE BLOOD COUNT 5.1 10*3/uL (4.8-10.8)
[2023-06-10 12:05] LABS: BUN 17 mg/dl (9-23); CHLORIDE 110 mmol/L (98-107); POTASSIUM 4.2 mmol/L (3.4-5.1)
== END 2023-06-10 13:41 | disposition home or self-care (01) ==
LOC: ED 11:05
PROVIDERS: Nurse Practitioner Family
DX: J04.0 Acute laryngitis (principal); J45.909 Unspecified asthma, uncomplicated; K21.9 Gastro-esophageal reflux disease without esophagitis; I10 Essential (primary) hypertension; E78.5 Hyperlipidemia, unspecified; Z88.0 Allergy status to penicillin; Z88.1 Allergy status to other antibiotic agents; Z98.890 Other specified postprocedural states

== ENCOUNTER 2023-07-29 11:48 | Emergency (ER) | payer MEDICARE ==
[~2023-07-29] VITALS: Ht 177.8 cm; Wt 76.7 kg
[~2023-07-29 11:48] MED LIST changes: +TOPAMAX25 M3 PO
[2023-07-29 11:59] VITALS: BP 114/58
[2023-07-29] MEDS ORDERED: QVAR REDIHALE10.6 GM INH (12:07)
[2023-07-29] MEDS ORDERED: TRINTELLIX10 MG PO (12:08)
[2023-07-29 12:20] LABS: BASO # 0.1 10*3/uL (0.0-0.1); BASO % 0.8 % (0.0-1.0); EOS % 0.4 % (1.0-4.0); LYMPH # 1.2 10*3/uL (1.3-4.4); LYMPH % 15.4 % (27.0-41.0); MEAN CELL VOLUME 99.3 fl (80.0-94.0); MEAN CORPUSCULAR HGB 32.9 pg (27.0-31.0); MEAN CORPUSCULAR HGB CONC 33.1 g/dl (33.0-37.0); MEAN PLATELET VOLUME 10.6 fl (9.6-12.3); MONO # 0.7 10*3/uL (0.1-1.0); MONO % 9.2 % (3.0-9.0); NEUT # 5.7 10*3/uL (2.3-7.9); NEUT % 74.1 % (47.0-73.0); PLATELET COUNT AUTOMATED 153 10*3/uL (130-400); RED BLOOD COUNT 4.23 10*6/uL (4.50-5.90); RED CELL DISTRI WIDTH 12.7 % (0-14.5); WHITE BLOOD COUNT 7.7 10*3/uL (4.8-10.8)
[2023-07-29 12:41] LABS: ALKALINE PHOSPHATASE 70 U/L (46-116); BUN 18 mg/dl (9-23); CHLORIDE 109 mmol/L (98-107); POTASSIUM 3.9 mmol/L (3.4-5.1); SGPT/ALT 18 U/L (5-49); TOTAL PROTEIN 6.6 gm/dL (6.0-8.0)
== END 2023-07-29 15:37 | disposition home or self-care (01) ==
LOC: ED 11:48
PROVIDERS: Internal Medicine
DX: R06.02 Shortness of breath (principal); J45.909 Unspecified asthma, uncomplicated; K21.9 Gastro-esophageal reflux disease without esophagitis; I10 Essential (primary) hypertension; E78.5 Hyperlipidemia, unspecified; Z88.0 Allergy status to penicillin; Z88.1 Allergy status to other antibiotic agents; Z98.890 Other specified postprocedural states

== ENCOUNTER → 2023-09-21 | Outpatient (CLI) | payer MEDICARE ==
[~2023-09-21] MED LIST changes: +QVAR REDIHALE10.6 GM INH; +RAMELTEON8 MG PO; -TOPAMAX25 M3 PO; +TOPAMAX50 MG PO; +TRINTELLIX10 MG PO; +TRINTELLIX20 MG PO; +VENT7GM INH; -ZYPREXA10 M1 PO; +ZYPREXA15 M1 PO
== END | disposition home or self-care (01) ==
LOC: CT 09:19
PROVIDERS: ATTEND Internal Medicine
DX: J43.9 Emphysema, unspecified (principal); D86.9 Sarcoidosis, unspecified; I31.39 Other pericardial effusion (noninflammatory); K80.20 Calculus of gallbladder without cholecystitis without obstruction; K76.89 Other specified diseases of liver; M47.814 Spondylosis without myelopathy or radiculopathy, thoracic region

== ENCOUNTER → 2023-09-27 | Outpatient (CLI) | payer MEDICARE ==
[~2023-09-27] MED LIST changes: +Regadenoson 0.4 MG/5 ML SYR IV ONE
== END | disposition home or self-care (01) ==
LOC: CARD 08-28 07:30
PROVIDERS: ATTEND Internal Medicine Cardiovascular Disease
DX: I51.89 Other ill-defined heart diseases (principal); R06.09 Other forms of dyspnea; I10 Essential (primary) hypertension; E78.5 Hyperlipidemia, unspecified

== ENCOUNTER → 2023-10-01 | Outpatient (CLI) | payer MEDICARE ==
[~2023-10-01] MED LIST changes: -Regadenoson 0.4 MG/5 ML SYR IV ONE
[2023-10-01 09:10] LABS: BASO % 0.5 % (0.0-1.0); EOS # 0.1 10*3/uL (0.0-0.4); EOS % 0.8 % (1.0-4.0); HEMATOCRIT 43.5 % (42.0-52.0); LYMPH # 1.5 10*3/uL (1.3-4.4); LYMPH % 24.1 % (27.0-41.0); MEAN CELL VOLUME 99.3 fl (80.0-94.0); MEAN CORPUSCULAR HGB 32.9 pg (27.0-31.0); MEAN CORPUSCULAR HGB CONC 33.1 g/dl (33.0-37.0); MEAN PLATELET VOLUME 11.2 fl (9.6-12.3); MONO # 0.5 10*3/uL (0.1-1.0); MONO % 8.5 % (3.0-9.0); NEUT % 65.9 % (47.0-73.0); PLATELET COUNT AUTOMATED 175 10*3/uL (130-400); RED BLOOD COUNT 4.38 10*6/uL (4.50-5.90); RED CELL DISTRI WIDTH 12.1 % (0-14.5)
[2023-10-01 09:52] LABS: ALKALINE PHOSPHATASE 74 U/L (46-116); BUN 12 mg/dl (9-23); CHLORIDE 108 mmol/L (98-107); PHENYTOIN (DILANTIN) 13.9 ug/ml (10-20); TOTAL PROTEIN 6.9 gm/dL (6.0-8.0)
[2023-10-01 09:55] LABS: SGPT/ALT < 7 U/L (5-49)
== END ==
LOC: LAB 08:24
PROVIDERS: ATTEND Nurse Practitioner Family
DX: R41.3 Other amnesia (principal); R56.9 Unspecified convulsions

== ENCOUNTER → 2024-06-02 | Day surgery (SDC) | payer MEDICARE ==
[~2024-06-02] VITALS: Ht 182.8 cm; Wt 90.7 kg
[~2024-06-02] MED LIST changes: +ALLERGY RELIEF10 M2 PO; +ARNUITY ELLIP100 MCG INH; +FLONASE ALLERG9.9 ML NAS; +Lactated Ringer's Solution 1,000 ML IV ONE; +Lactated Ringer's Solution 1,000 ML IV SCH; +Lidocaine Hydrochloride 5 ML VIAL IV ONE; +PROPOFOL 200 MG/20 ML VIAL IV ONE; +TOPAMAX25 M3 PO; +ZYPREXA10 M1 PO
[2024-06-02 06:51] VITALS: BP 149/66
[2024-06-02 07:55] VITALS: BP 140/70
[2024-06-02 08:10] VITALS: BP 135/69
[2024-06-02 08:25] VITALS: BP 128/66
== END | disposition home or self-care (01) ==
LOC: SDC 05-29 08:00
PROVIDERS: ATTEND Surgery
DX: Z12.11 Encounter for screening for malignant neoplasm of colon (principal); D12.3 Benign neoplasm of transverse colon; K64.4 Residual hemorrhoidal skin tags; K64.8 Other hemorrhoids; D17.5 Benign lipomatous neoplasm of intra-abdominal organs; K21.9 Gastro-esophageal reflux disease without esophagitis; K44.9 Diaphragmatic hernia without obstruction or gangrene; I10 Essential (primary) hypertension; E78.00 Pure hypercholesterolemia, unspecified; G40.909 Epilepsy, unspecified, not intractable, without status epilepticus; J45.909 Unspecified asthma, uncomplicated; F42.9 Obsessive-compulsive disorder, unspecified; F41.9 Anxiety disorder, unspecified; Z86.0100 Personal history of colon polyps, unspecified; Z90.89 Acquired absence of other organs; Z98.890 Other specified postprocedural states; Z79.899 Other long term (current) drug therapy; Z88.0 Allergy status to penicillin; Z88.1 Allergy status to other antibiotic agents; Z82.49 Family history of ischemic heart disease and other diseases of the circulatory system